=== PATIENT | male | born 1985 | race Caucasian/White ===

== ENCOUNTER 2016-05-20 09:54 | Emergency (ER) | payer OTHER ==
[~2016-05-20] VITALS: Ht 185.4 cm; Wt 99.8 kg
[~2016-05-20 09:54] MED LIST: DPKSR250 PO
[2016-05-20 09:58] VITALS: TEMP 36.6; Ht 185.4 cm; Wt 99.8 kg
[2016-05-20] MEDS ORDERED: METOCLOPRAMIDE HCL INJ 5 MG/ML 2 ML VIAL IV STA (10:50)
[2016-05-20] MEDS ORDERED: HYDROmorphone INJ 1 MG/ML SYR IV STA (10:50)
[2016-05-20] MEDS ORDERED: KETOROLAC TROMETHAMINE 30 MG/ML VIAL IV STA (10:50)
[2016-05-20] MEDS ORDERED: SODIUM CHLORIDE 0.9% 1000ML 1,000 ML IV STA (10:50)
[2016-05-20] MEDS ORDERED: KPP/750 PO (10:53)
[2016-05-20] MEDS ORDERED: LISI20TA55 PO (10:53)
[2016-05-20] MEDS ORDERED: OPTIRAY 320 IV PRN (11:00)
[2016-05-20 11:07] LABS: BASO % 0.2 %; BASO ABS # 0.03 K/uL (0-0.2); COMPLETE YES; EOS % 0.7 %; HEMATOCRIT 45.7 % (42-52); IG% 0.4 %; LYMPH % 7.6 %; LYMPH ABS # 1.45 K/uL (1.2-3.4); MEAN CELL VOLUME 84.8 fL (80-100); MEAN CORPUSCULAR HEMOGLOBIN 30.1 pg (25-34); MEAN CORPUSCULAR HGB CONC 35.4 g/dl (32-36); MEAN PLATELET VOLUME 10.6 fL (7.4-10.4); NEUT % 85.1 %; PLATELET COUNT 230 K/uL (130-400); RED BLOOD COUNT 5.39 M/uL (4.7-6.1); WHITE BLOOD COUNT 19.15 K/uL (4.8-10.8)
[2016-05-20 11:14] LABS: BUN/CREATININE RATIO 16.1 (10-20); CALCIUM 9.6 mg/dl (8.5-10.1); CREATININE 1.3 mg/dl (0.60-1.40); POTASSIUM 4.6 mmol/L (3.5-5.1)
--- NOTE | 2016-05-20 11:56 | EMERGENCY ROOM VISIT NOTE ---
History Report prepared by Nalini: Shanel Way Under the Supervision of: Dr. Ralph Snider M.D. First contact with patient: 10:45 Chief Complaint: ABDOMINAL PAIN Stated Complaint: PAIN LOWER RIGHT STOMACH Nursing Triage Summary: RLQ abd pain, started this a.m. N/V History of Present Illness The patient is a 30 year old male who presents to the Emergency Room with complaints of persistent right lower quadrant abdominal pain starting about 5 hours ago. He also reports nausea and vomiting. The patient woke up with the pain. While he was having a bowel movement, he had a sudden onset of diaphoresis and lightheadedness. He lost consciousness. The patient denies any history of any abdominal surgeries. He also denies a history of kidney stones. The patient denies fevers, chills, chest pain, shortness of breath, urinary symptoms, or any other complaints. Source of History: patient Onset: about 5 hours ago Position: abdomen (RLQ) Timing: other (persistent) Associated Symptoms: + LOC, + nausea, + vomiting, No SOB, No chest pain, No chills, No fevers, No urinary symptoms Review of Systems See HPI for pertinent positives & negatives. A total of 10 systems reviewed and were otherwise negative. Past Medical & Surgical Medical Problems: (1) HTN (hypertension) Family History Gallbladder disease Hypertension Seizures Social History Smoking Status: Current Every Day Smoker Alcohol Use: occasionally Marital Status: in relationship Housing Status: lives with family Occupation Status: employed Current/Historical Medications Scheduled Levetiracetam (Keppra), 750 MG PO BID Lisinopril/Hctz (Prinzide 20-25MG), 1 TAB PO DAILY Scheduled PRN Oxycodone/Acetaminophen 5MG/325MG (Percocet 5MG/325MG), 1-2 TAB PO Q4H PRN for Pain Allergies Coded Allergies: ALLERGY2 (Verified Allergy, Unknown, 07/29/03) NO KNOWN DRUG ALLERGIES (Unverified Allergy, Unknown, none, 05/20/16) Physical Exam Vital Signs Date Time Temp Pulse Resp B/P Pulse Ox O2 Delivery O2 Flow Rate FiO2 05/20/16 14:56 69 18 127/76 98 Room Air 05/20/16 13:54 69 18 120/64 100 Room Air 05/20/16 11:21 90 18 125/72 100 Room Air 05/20/16 09:58 36.6 68 18 110/74 97 Room Air Physical Exam GENERAL: Patient is a healthy-appearing well-nourished HEAD: Normocephalic atraumatic EYES: Ocular movements intact pupils equal and react to light OROPHARYNX mucous membranes are moist no exudates present no erythema or edema present NECK: Supple no nuchal rigidity CHEST: Good equal expansion LUNGS: Clear and equal to auscultation CARDIAC: Normal S1 and S2 ABDOMEN: Soft, tenderness in right lower quadrant, no guarding or rigidity. BACK: No CVA tenderness EXTREMITIES: No pain upon palpation normal muscle strength in all groups no clubbing cyanosis or edema NEURO: Patient is following commands is answering questions appropriately. Alert and oriented x3 Cranial Nerves 2-12 grossly intact Medical Decision & Procedures ER Provider Diagnostic Interpretation: CT results as stated below per my review and radiologist interpretation: CT SCAN OF THE ABDOMEN AND PELVIS WITH IV CONTRAST CLINICAL HISTORY: Right lower quadrant abdominal pain. COMPARISON STUDY: No priors. TECHNIQUE: Following the IV administration of 100 cc of Optiray 320, CT scan of the abdomen and pelvis is performed from the lung bases to the proximal femora. Images are reviewed in the axial, sagittal, and coronal planes. IV contrast was administered without complication. Automated dose control exposure was utilized. CT DOSE: 602.91 mGy.cm FINDINGS: Lung bases: The heart is normal in size and without pericardial effusion. The lung bases are clear noting dependent atelectasis. Liver: The contrast-enhanced liver is normal in size, contour, and attenuation. There is no intrahepatic biliary ductal dilatation. The hepatic veins and portal veins are patent. Gallbladder: Unremarkable. Spleen: Normal in size and attenuation. Pancreas: Unremarkable. Adrenal glands: Unremarkable. Kidneys: The contrast enhanced kidneys are normal in size and without hydronephrosis. The kidneys enhance symmetrically. Abdominal vasculature: The abdominal aorta is normal in course and caliber. Bowel: There is no bowel obstruction. There are several loops of proximal jejunum matted in the left upper quadrant which are mildly thick walled and show perienteric stranding. The appendix is well-visualized and normal. Peritoneum: There is no intraperitoneal free air or abdominal ascites. There is a small fat-containing umbilical hernia. Lymphadenopathy: None. Pelvic viscera: The bladder, prostate, and seminal vesicles are normal as visualized. Skeletal structures: No lytic or blastic lesions are seen. IMPRESSION: 1. Findings are consistent with a nonspecific enteritis involving loops of proximal jejunum in the left upper quadrant. 2. The appendix is well-visualized and normal. Electronically signed by: Ottoniel Hartmann M.D. 05/20/2016 2:28 PM Dictated Date/Time: 05/20/2016 2:09 PM Laboratory Results 05/20/16 10:18 Red Blood Count 5.39, Mean Corpuscular Volume 84.8, Mean Corpuscular Hemoglobin 30.1, Mean Corpuscular Hemoglobin Concent 35.4, Mean Platelet Volume 10.6, Neutrophils (%) (Auto) 85.1, Lymphocytes (%) (Auto) 7.6, Monocytes (%) (Auto) 6.0, Eosinophils (%) (Auto) 0.7, Basophils (%) (Auto) 0.2, Neutrophils # (Auto) 16.31, Lymphocytes # (Auto) 1.45, Monocytes # (Auto) 1.15, Eosinophils # (Auto) 0.13, Basophils # (Auto) 0.03 05/20/16 10:18 Test 05/20/16 10:18 05/20/16 12:50 White Blood Count 19.15 K/uL (4.8-10.8) Red Blood Count 5.39 M/uL (4.7-6.1) Hemoglobin 16.2 g/dL (14.0-18.0) Hematocrit 45.7 % (42-52) Mean Corpuscular Volume 84.8 fL (80-100) Mean Corpuscular Hemoglobin 30.1 pg (25-34) Mean Corpuscular Hemoglobin Concent 35.4 g/dl (32-36) Platelet Count 230 K/uL (130-400) Mean Platelet Volume 10.6 fL (7.4-10.4) Neutrophils (%) (Auto) 85.1 % Lymphocytes (%) (Auto) 7.6 % Monocytes (%) (Auto) 6.0 % Eosinophils (%) (Auto) 0.7 % Basophils (%) (Auto) 0.2 % Neutrophils # (Auto) 16.31 K/uL (1.4-6.5) Lymphocytes # (Auto) 1.45 K/uL (1.2-3.4) Monocytes # (Auto) 1.15 K/uL (0.11-0.59) Eosinophils # (Auto) 0.13 K/uL (0-0.5) Basophils # (Auto) 0.03 K/uL (0-0.2) RDW Standard Deviation 36.4 fL (36.4-46.3) RDW Coefficient of Variation 11.9 % (11.5-14.5) Immature Granulocyte % (Auto) 0.4 % Immature Granulocyte # (Auto) 0.08 K/uL (0.00-0.02) Anion Gap 7.0 mmol/L (3-11) Est Creatinine Clear Calc Drug Dose 101.4 ml/min Estimated GFR () 83.7 Estimated GFR (Non- 72.2 BUN/Creatinine Ratio 16.1 (10-20) Calcium Level 9.6 mg/dl (8.5-10.1) Total Bilirubin 0.6 mg/dl (0.2-1) Direct Bilirubin 0.1 mg/dl (0-0.2) Aspartate Amino Transf (AST/SGOT) 18 U/L (15-37) Alanine Aminotransferase (ALT/SGPT) 76 U/L (12-78) Alkaline Phosphatase 74 U/L (45-117) Total Protein 7.8 gm/dl (6.4-8.2) Albumin 4.3 gm/dl (3.4-5.0) Lipase 161 U/L (73-393) Urine Color YELLOW Urine Appearance CLEAR (CLEAR) Urine pH 5.0 (4.5-7.5) Urine Specific [place] 1.015 (1.000-1.030) Urine Protein NEG (NEG) Urine Glucose (UA) NEG (NEG) Urine Ketones 1+ (NEG) Urine Occult Blood NEG (NEG) Urine Nitrite NEG (NEG) Urine Bilirubin NEG (NEG) Urine Urobilinogen NEG (NEG) Urine Leukocyte Esterase NEG (NEG) Labs reviewed by ED physician. Medications Administered Medications (Trade) Dose Ordered Sig/Ravi Route Start Time Stop Time Status Last Admin Dose Admin Sodium Chloride (Nss 1000ml) 1,000 ml @ 999 mls/hr Q1H1M STAT IV 05/20/16 10:50 05/20/16 11:50 DC 05/20/16 10:50 999 MLS/HR Ketorolac Tromethamine (Toradol Inj) 30 mg NOW STAT IV 05/20/16 10:50 05/20/16 10:51 DC 05/20/16 11:17 30 MG Hydromorphone HCl (Dilaudid Inj) 1 mg NOW STAT IV 05/20/16 10:50 05/20/16 10:51 DC 05/20/16 11:18 1 MG Metoclopramide HCl (Reglan Inj) 10 mg NOW STAT IV 05/20/16 10:50 05/20/16 10:51 DC 05/20/16 11:16 10 MG ED Course 1045: Past medical records reviewed. The patient was evaluated in room A03. A complete history and physical examination was performed. 1050: Reglan Inj 10 mg IV, Dilaudid Inj 1 mg IV, Toradol Inj 30 mg IV, Sodium Chloride 1000 ml @ 999 mls/hr IV 1439: Upon reexamination the patient is resting comfortably. I discussed results and treatment plan with the patient. He verbalizes agreement and understanding. The patient is ready for discharge. Medical Decision Differential diagnosis: Etiologies such as appendicitis, diverticulitis, PUD, biliary pathology, UTI, pancreatitis, obstruction, mesenteric ischemia, aortic pathology, infections, inflammatory bowel disease, renal colic, as well as others were entertained. This is a 30-year-old male who presents emergency department complaining of right lower quadrant abdominal pain and started acutely. In addition the patient has what appears to be a vasovagal episode while sitting on the toilet. He is tender the right lower quadrant for this reason a CAT scan of the abdomen pelvis was ordered. He does not appear to have any evidence of appendicitis on CAT scan and in addition the patient on repeat abdominal examinations had no right lower quadrant abdominal tenderness. I do believe that the patient is well enough to be discharged home for follow-up with his primary care physician. Patient was in agreement with the treatment plan. Impression Primary Impression: Acute gastroenteritis Additional Impression: Vasovagal episode Scribe Attestation The scribe's documentation has been prepared under my direction and personally reviewed by me in its entirety. I confirm that the note above accurately reflects all work, treatment, procedures, and medical decision making performed by me. Departure Information Dispostion Home / Self-Care Prescriptions Oxycodone/Acetaminophen 5MG/325MG (PERCOCET 5MG/325MG) Tab 1-2 TAB PO Q4H Y for Pain, #14 TAB Prov: Ralph Snider MD 05/20/16 Referrals Ahmet Le M.D. (PCP) Lukasz Lerma M.D. Forms Call Back Authorization, HOME CARE DOCUMENTATION FORM, IMPORTANT VISIT INFORMATION Patient Instructions ED Gastroenteritis Viral, ED Near Syncope Vasovagal, My [facility] Additional Instructions You received narcotic or benzodiazepene medication while in the emergency room today. Do not drive, operate heavy machinery, or drink alcohol under the influence of this medication. Take 600 mg Ibuprofen every 6 hours Take Percocet for breakthrough pain Use probiotic yogurt for diarrhea You have been examined and treated today on an emergency basis only. This is not a substitute for, or an effort to provide, complete comprehensive medical care. It is impossible to recognize and treat all injuries or illnesses in a single emergency department visit. It is therefore important that you follow up closely with DR Melgar. Call as soon as possible for an appointment. Thank you for your time and consideration. I look forward to speaking with you again soon. Please don't hesitate to call us if you have any questions. Problem Qualifiers
[2016-05-20 13:14] LABS: URINE APPEARANCE CLEAR (CLEAR); URINE BILIRUBIN NEG (NEG); URINE COLOR YELLOW; URINE NITRITE NEG (NEG); URINE SPECIFIC GRAVITY 1.015 (1.000-1.030); UROBILINOGEN NEG (NEG)
[2016-05-20 13:44] LABS: MANUAL MICROSCOPIC REQUIRED? NO; REVIEW REQ? NO
--- NOTE | 2016-05-20 14:30 | DIAGNOSTIC IMAGING REPORT ---
CT SCAN OF THE ABDOMEN AND PELVIS WITH IV CONTRAST CLINICAL HISTORY: Right lower quadrant abdominal pain. COMPARISON STUDY: No priors. TECHNIQUE: Following the IV administration of 100 cc of Optiray 320, CT scan of the abdomen and pelvis is performed from the lung bases to the proximal femora. Images are reviewed in the axial, sagittal, and coronal planes. IV contrast was administered without complication. Automated dose control exposure was utilized. CT DOSE: 602.91 mGy.cm FINDINGS: Lung bases: The heart is normal in size and without pericardial effusion. The lung bases are clear noting dependent atelectasis. Liver: The contrast-enhanced liver is normal in size, contour, and attenuation. There is no intrahepatic biliary ductal dilatation. The hepatic veins and portal veins are patent. Gallbladder: Unremarkable. Spleen: Normal in size and attenuation. Pancreas: Unremarkable. Adrenal glands: Unremarkable. Kidneys: The contrast enhanced kidneys are normal in size and without hydronephrosis. The kidneys enhance symmetrically. Abdominal vasculature: The abdominal aorta is normal in course and caliber. Bowel: There is no bowel obstruction. There are several loops of proximal jejunum matted in the left upper quadrant which are mildly thick walled and show perienteric stranding. The appendix is well-visualized and normal. Peritoneum: There is no intraperitoneal free air or abdominal ascites. There is a small fat-containing umbilical hernia. Lymphadenopathy: None. Pelvic viscera: The bladder, prostate, and seminal vesicles are normal as visualized. Skeletal structures: No lytic or blastic lesions are seen. IMPRESSION: 1. Findings are consistent with a nonspecific enteritis involving loops of proximal jejunum in the left upper quadrant. 2. The appendix is well-visualized and normal. Electronically signed by: Ottoniel Hartmann M.D. 05/20/2016 2:28 PM Dictated Date/Time: 05/20/2016 2:09 PM
[2016-05-20] MEDS ORDERED: OXYC-57 PO (14:36)
[2016-05-20 14:56] VITALS: BP 127/76; PULSE 69; O2SAT 98
[2016-10-26] MEDS ORDERED: KPP/1000 PO (17:42)
[2016-10-26] MEDS ORDERED: OXYC-57 PO (18:00)
== END 2016-05-20 14:56 | disposition home or self-care (01) ==
LOC: C.EDB 09:55 → C.EDA 14:56
DX: K52.9 Noninfective gastroenteritis and colitis, unspecified (principal); R55 Syncope and collapse; F17.200 Nicotine dependence, unspecified, uncomplicated; Z82.49 Family history of ischemic heart disease and other diseases of the circulatory system; Z82.0 Family history of epilepsy and other diseases of the nervous system

== ENCOUNTER 2016-10-24 22:46 | Observation (INO) | payer BC, OTHER ==
[~2016-10-24] VITALS: Ht 182.9 cm; Wt 106.0 kg
[~2016-10-24 22:46] MED LIST changes: -DPKSR250 PO; +KPP/750 PO; +LISI20TA55 PO; +OXYC-57 PO
[2016-10-24] MEDS ORDERED: SODIUM CHLORIDE 0.9% 1000ML 1,000 ML IV SCH (22:47)
[2016-10-24 22:50] VITALS: Ht 182.9 cm; Wt 106.0 kg
[2016-10-24] MEDS ORDERED: LEVETIRACETAM IV 500 MG in DEXTROSE 5% 100ML 100 ML IV STA (22:51)
[2016-10-24] MEDS ORDERED: MAGNESIUM SULFATE 1GM / D5W 1 GM BAG IV STA (22:52)
[2016-10-24] MEDS ORDERED: SODIUM CHLORIDE 0.9% 1000ML 1,000 ML IV STA (22:52)
[2016-10-24] MEDS ORDERED: KETOROLAC TROMETHAMINE 30 MG/ML VIAL IV STA (22:52)
[2016-10-24 23:01] LABS: BASO % 0.4 %; BASO ABS # 0.03 K/uL (0-0.2); COMPLETE YES; EOS % 3.8 %; HEMATOCRIT 42.6 % (42-52); IG% 0.5 %; LYMPH % 30.7 %; LYMPH ABS # 2.56 K/uL (1.2-3.4); MEAN CELL VOLUME 89.7 fL (80-100); MEAN CORPUSCULAR HEMOGLOBIN 30.3 pg (25-34); MEAN CORPUSCULAR HGB CONC 33.8 g/dl (32-36); MONO % 7.9 %; NEUT % 56.7 %; PLATELET COUNT 227 K/uL (130-400); RED BLOOD COUNT 4.75 M/uL (4.7-6.1); WHITE BLOOD COUNT 8.35 K/uL (4.8-10.8)
--- NOTE | 2016-10-24 23:01 | EMERGENCY ROOM VISIT NOTE ---
History Report prepared by Nalini: Jose De Jesus Escobar Under the Supervision of: Dr. Ralph Snider M.D. First contact with patient: 22:39 Chief Complaint: STROKE SYMPTOMS Stated Complaint: STROKE ALERT History of Present Illness The patient is a 31 year old male who presents to the Emergency Room with complaints of resolved left-sided weakness that occurred 1 hour ago. The patient has a past medical history of migraines and seizures. He is on Keppra and has been up to date on his doses. At this time, he was in bed with his when she noticed that the left side of his face was drooping and he was not responding. After a couple of minutes he began to respond but he was having left sided weakness as well. They called EMS. On arrival, the patient's symptoms have resolved, however he now has a posterior headache. 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 Source of History: patient Onset: 1 hour ago Position: other (Left side) Symptom Intensity: minimal Quality: other (weakness) Timing: resolved Associated Symptoms: + headache Note: His weakness has now resolved. Review of Systems See HPI for pertinent positives & negatives. A total of 10 systems reviewed and were otherwise negative. Past Medical & Surgical Medical Problems: (1) HTN (hypertension) (2) Seizure Family History Gallbladder disease Hypertension Seizures Social History Smoking Status: Current Every Day Smoker Smokeless Tobacco Use: No Alcohol Use: occasionally Drug Use: none Marital Status: in relationship Housing Status: lives with family Occupation Status: employed Current/Historical Medications Scheduled Levetiracetam (Keppra), 750 MG PO BID Lisinopril/Hctz (Prinzide 20-25MG), 1 TAB PO DAILY Allergies Coded Allergies: NO KNOWN DRUG ALLERGIES (Unverified Allergy, Unknown, none, 10/24/16) Physical Exam Vital Signs Date Time Temp Pulse Resp B/P (MAP) Pulse Ox O2 Delivery O2 Flow Rate FiO2 10/25/16 01:39 85 18 153/77 98 Room Air 10/25/16 01:21 84 18 143/80 97 Room Air 10/24/16 23:37 91 20 127/78 99 Room Air 10/24/16 22:59 91 Room Air 10/24/16 22:57 103 10/24/16 22:50 36.4 103 20 147/105 98 Room Air Physical Exam GENERAL: Patient is a healthy-appearing well-nourished male HEAD: Normocephalic atraumatic EYES: Ocular movements intact pupils equal and react to light OROPHARYNX mucous membranes are moist no exudates present no erythema or edema present NECK: Supple no nuchal rigidity CHEST: Good equal expansion LUNGS: Clear and equal to auscultation CARDIAC: Normal S1 and S2 ABDOMEN: Soft nontender no guarding BACK: No CVA tenderness EXTREMITIES: No pain upon palpation normal muscle strength in all groups no clubbing cyanosis or edema NEURO: Patient is following commands and answering questions appropriately. Alert and oriented x3 Cranial Nerves 2-12 grossly intact Medical Decision & Procedures ER Provider Diagnostic Interpretation: Radiology results as stated below per my review and radiologist interpretation: CT OF THE HEAD WITHOUT CONTRAST CLINICAL HISTORY: Stroke alert. COMPARISON STUDY: Head CT March 14, 2010. CT DOSE: 537.48 mGy.cm TECHNIQUE: Helical axial images of the head were obtained without IV contrast. Automated exposure control was utilized for the study. A dose lowering technique was utilized adhering to the principles of ALARA. FINDINGS: No acute intracranial hemorrhage, midline shift or mass effect is present. Ventricular system is normal. Basilar cisterns are patent. There are no extra-axial collections. Gonzales-white differentiation is maintained. There are no findings to suggest acute dural sinus thrombosis or acute territorial infarct. There are no significant calvarial abnormalities. There is minimal mucosal thickening of the ethmoid sinuses. IMPRESSION: No acute intracranial findings. Electronically signed by: Leonel Shah M.D. 10/24/2016 10:59 PM Dictated Date/Time: 10/24/2016 10:55 PM CHEST X-RAY 1 VIEW: No evidence of pneumonia, congestion, or pneumothorax. Per mo Laboratory Results 10/24/16 22:38 Red Blood Count 4.75, Mean Corpuscular Volume 89.7, Mean Corpuscular Hemoglobin 30.3, Mean Corpuscular Hemoglobin Concent 33.8, Mean Platelet Volume 10.0, Neutrophils (%) (Auto) 56.7, Lymphocytes (%) (Auto) 30.7, Monocytes (%) (Auto) 7.9, Eosinophils (%) (Auto) 3.8, Basophils (%) (Auto) 0.4, Neutrophils # (Auto) 4.74, Lymphocytes # (Auto) 2.56, Monocytes # (Auto) 0.66, Eosinophils # (Auto) 0.32, Basophils # (Auto) 0.03 10/24/16 22:38 Test 10/24/16 22:38 10/24/16 22:56 10/25/16 00:00 White Blood Count 8.35 K/uL (4.8-10.8) Red Blood Count 4.75 M/uL (4.7-6.1) Hemoglobin 14.4 g/dL (14.0-18.0) Hematocrit 42.6 % (42-52) Mean Corpuscular Volume 89.7 fL (80-100) Mean Corpuscular Hemoglobin 30.3 pg (25-34) Mean Corpuscular Hemoglobin Concent 33.8 g/dl (32-36) Platelet Count 227 K/uL (130-400) Mean Platelet Volume 10.0 fL (7.4-10.4) Neutrophils (%) (Auto) 56.7 % Lymphocytes (%) (Auto) 30.7 % Monocytes (%) (Auto) 7.9 % Eosinophils (%) (Auto) 3.8 % Basophils (%) (Auto) 0.4 % Neutrophils # (Auto) 4.74 K/uL (1.4-6.5) Lymphocytes # (Auto) 2.56 K/uL (1.2-3.4) Monocytes # (Auto) 0.66 K/uL (0.11-0.59) Eosinophils # (Auto) 0.32 K/uL (0-0.5) Basophils # (Auto) 0.03 K/uL (0-0.2) RDW Standard Deviation 41.3 fL (36.4-46.3) RDW Coefficient of Variation 12.8 % (11.5-14.5) Immature Granulocyte % (Auto) 0.5 % Immature Granulocyte # (Auto) 0.04 K/uL (0.00-0.02) Prothrombin Time 9.9 SECONDS (9.0-12.0) Prothromb Time International Ratio 0.9 (0.9-1.1) Activated Partial Thromboplast Time 32.6 SECONDS (21.0-31.0) Partial Thromboplastin Ratio 1.3 Anion Gap 10.0 mmol/L (3-11) Est Creatinine Clear Calc Drug Dose 101.7 ml/min Estimated GFR () 83.1 Estimated GFR (Non- 71.7 BUN/Creatinine Ratio 9.9 (10-20) Calcium Level 8.8 mg/dl (8.5-10.1) Magnesium Level 1.9 mg/dl (1.8-2.4) Total Bilirubin 0.2 mg/dl (0.2-1) Direct Bilirubin < 0.1 mg/dl (0-0.2) Aspartate Amino Transf (AST/SGOT) 33 U/L (15-37) Alanine Aminotransferase (ALT/SGPT) 47 U/L (12-78) Alkaline Phosphatase 62 U/L (45-117) Total Creatine Kinase 124 U/L (39-308) Creatine Kinase MB 0.8 ng/ml (0.5-3.6) Creatine Kinase MB Ratio 0.6 (0-3.0) Troponin I < 0.015 ng/ml (0-0.045) Total Protein 7.2 gm/dl (6.4-8.2) Albumin 3.9 gm/dl (3.4-5.0) Thyroid Stimulating Hormone (TSH) 1.040 uIu/ml (0.300-4.500) Bedside Prothrombin Time INR 1.0 (0.9-1.1) Bedside Glucose 90 mg/dl (70-99) Urine Color YELLOW Urine Appearance CLEAR (CLEAR) Urine pH 6.0 (4.5-7.5) Urine Specific Naylor 1.010 (1.000-1.030) Urine Protein NEG (NEG) Urine Glucose (UA) NEG (NEG) Urine Ketones NEG (NEG) Urine Occult Blood NEG (NEG) Urine Nitrite NEG (NEG) Urine Bilirubin NEG (NEG) Urine Urobilinogen NEG (NEG) Urine Leukocyte Esterase NEG (NEG) Urine Opiates Screen POS (NEG) Urine Methadone, Qualitative NEG (NEG) Urine Barbiturates NEG (NEG) Urine Phencyclidine (PCP) Level NEG (NEG) Ur Amphetamine/Methamphetamine NEG (NEG) MDMA (Ecstasy) Screen NEG (NEG) Urine Benzodiazepines Screen NEG (NEG) Urine Cocaine Metabolite NEG (NEG) Urine Marijuana (THC) NEG (NEG) Labs reviewed by ED physician. Medications Administered Medications (Trade) Dose Ordered Sig/Ravi Route Start Time Stop Time Status Last Admin Dose Admin Sodium Chloride 1,000 ml @ 50 mls/hr Q20H IV 8/28/17 22:47 11/23/16 22:46 10/24/16 23:23 50 MLS/HR Ketorolac Tromethamine (Toradol Inj) 30 mg NOW STAT IV 10/24/16 22:52 10/24/16 22:55 DC 10/24/16 23:17 30 MG Sodium Chloride 1,000 ml @ 999 mls/hr Q1H1M STAT IV 10/24/16 22:52 10/24/16 23:52 DC 10/24/16 23:23 999 MLS/HR Magnesium Sulfate (Magnesium Sulfate) 1 gm NOW STAT IV 10/24/16 22:52 10/24/16 22:55 DC 10/24/16 22:52 1 GM Lorazepam (Ativan Inj) 2 mg NOW STAT IV 10/24/16 23:18 10/24/16 23:19 DC 10/24/16 23:20 2 MG Levetiracetam 1000 mg/Dextrose 110 ml @ 440 mls/hr ONE ONCE IV 10/24/16 23:30 10/24/16 23:44 DC 10/24/16 23:27 440 MLS/HR Potassium Chloride (Klor-Con Pwd) 40 meq NOW STAT PO 10/24/16 23:26 10/24/16 23:27 DC 10/25/16 00:18 40 MEQ Benztropine Mesylate (Cogentin Inj) 2 mg NOW STAT IV 10/24/16 23:56 10/24/16 23:57 DC 10/24/16 23:56 2 MG Hydromorphone HCl (Dilaudid Inj) 1 mg NOW STAT IV 10/25/16 00:01 10/25/16 00:03 DC 10/25/16 00:20 1 MG Thiamine HCl (Vitamin B-1 Inj) 100 mg NOW STAT IV 10/25/16 00:02 10/25/16 00:15 DC 10/25/16 00:23 100 MG Ketorolac Tromethamine (Toradol Inj) 30 mg NOW STAT IV 10/25/16 00:53 10/25/16 01:13 DC 10/25/16 01:36 30 MG ECG Indication: weakness Rate (beats per minute): 98 Rhythm: normal sinus Findings: no acute ischemic change, no ectopy ED Course 2238: Past medical records reviewed. The patient was evaluated in room B1. A complete history and physical examination was performed. 2247: Ordered Sodium Chloride 1000 ml @ 50 mls/hr IV 2251: Ordered Levetiracetam 500 mg/Dextrose 105 ml @ 420 mls/hr IV 2252: Ordered Magnesium Sulfate 1 mg IV, Sodium Chloride 1000 ml @ 999 mls/hr IV , Toradol Inj 30 mg IV 2316: Ordered Ativan Inj 2 mg .ROUTE 2318: Ordered Ativan Inj 2 mg IV 2321: Ordered Potassium Chloride 40 meq PO 2330: Ordered Levetiracetam 1000 mg/Dextrose 110 ml @ 440 mls/hr IV 2356: Ordered Cogentin 2 mg IV 2354: Upon reexamination the patient is resting. I discussed results and treatment plan with the patient. He verbalizes agreement and understanding. I spoke with Dr. Moss from the [facility]. The patient will be evaluated for further management. Medical Decision Differential diagnosis: Etiologies such as metabolic, infection, hypo/hyperglycemia, electrolyte abnormalities, cardiac sources, intracerebral event, toxicologic, neurologic, as well as others were entertained. This is a 31-year-old male who presents emergency department complaining of seizure-like activity. 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 He does not appear to be post ictal after these episodes. Upon arrival to the emergency department the patient is belligerent and is refusing an alcohol lab. He is angry that he is here. I recommended that the patient receive IV Keppra as he has been drinking tonight. The patient admits to drinking 3 or 4 beers but does not believe that this has anything to do with his current state. The patient initially refused to Keppra as well as the Ativan and did not want anything done however he had another episode in the emergency department. At that time he did receive Ativan a Keppra. I was called to the room approximate 30 minutes later to witness the patient again have another episode and at this point I strongly suspect that the patient is actually having dystonic reactions. For this reason he was given Cogentin which seemed to stop the episodes. Based on the fact that the patient had multiple episodes I did discuss the case with the hospitalist who agreed to admit the patient. Medication Reconcilliation Current Medication List: was personally reviewed by me Blood Pressure Screening Patient's blood pressure: Elevated blood pressure Blood pressure disposition: Elevated BP felt to be situational Consults Time Called: [id number] Consulting Physician: Dr. Isa Perez Hospitalist Returned Call: [phone] I discussed the patient's case with Dr. Moss, he has agreed to evaluate the patient for further management and care. Impression Primary Impression: Dystonic drug reaction Critical Care I have personally spent greater than 30 minutes of critical care time in the direct management of this patient. This includes bedside care, interpretation of diagnostic studies, and testing, discussion with consultants, patient, and family members, and other required patient management activities. This 30 minutes is in excess of all separately billable procedures. Scribe Attestation The scribe's documentation has been prepared under my direction and personally reviewed by me in its entirety. I confirm that the note above accurately reflects all work, treatment, procedures, and medical decision making performed by me. Departure Information Dispostion Being Evaluated By Hospitalist Referrals Lukasz Lerma M.D. (PCP) Patient Instructions My [facility] Stroke History Time Last Known Well 1 hour ago Stroke t-PA Criteria Reviewed Does NOT meet criteria for t-PA Reason t-PA Not Given Treatment not indicated
[2016-10-24 23:13] LABS: INR 0.9 (0.9-1.1); PARTIAL THROMBOPLASTIN RATIO 1.3; PROTHROMBIN TIME (PATIENT) 9.9 SECONDS (9.0-12.0)
[2016-10-24] MEDS ORDERED: LORAZEPAM 2 MG/ML 1 ML VIAL ONE (23:16)
[2016-10-24] MEDS ORDERED: LORAZEPAM 2 MG/ML 1 ML VIAL IV STA (23:18)
[2016-10-24 23:24] LABS: BLOOD UREA NITROGEN 13 mg/dl (7-18); BUN/CREATININE RATIO 9.9 (10-20); CALCIUM 8.8 mg/dl (8.5-10.1); CARBON DIOXIDE 27 mmol/L (21-32); CHLORIDE 103 mmol/L (98-107); GLUCOSE 88 mg/dl (70-99); POTASSIUM 3.4 mmol/L (3.5-5.1); SODIUM 140 mmol/L (136-145)
[2016-10-24] MEDS ORDERED: POTASSIUM CHLORIDE PWD 20 MEQ PACK PO STA (23:26)
[2016-10-24 23:28] LABS: CKMB/CK RATIO 0.6 (0-3.0)
[2016-10-24] MEDS ORDERED: LEVETIRACETAM IV 1,000 MG in DEXTROSE 5% 100ML 100 ML IV ONE (23:30)
[2016-10-24] MEDS ORDERED: BENZTROPINE MESYLATE 1 MG/ML 2 ML AMP IV STA (23:56)
[2016-10-25] MEDS ORDERED: HYDROmorphone INJ 1 MG/ML SYR IV STA (00:01)
[2016-10-25] MEDS ORDERED: POTASSIUM CHLORIDE 10 MEQ TABCR PO STA (00:02)
[2016-10-25] MEDS ORDERED: THIAMINE HCL 100 MG/ML 2 ML VIAL IV STA (00:02)
[2016-10-25 00:27] LABS: ALKALINE PHOSPHATASE 62 U/L (45-117); ALT/SGPT 47 U/L (12-78); AST/SGOT 33 U/L (15-37); MAGNESIUM 1.9 mg/dl (1.8-2.4)
[2016-10-25] MEDS ORDERED: KETOROLAC TROMETHAMINE 30 MG/ML VIAL IV STA (00:53)
[2016-10-25] MEDS ORDERED: LORAZEPAM INJ 1 MG in SYRINGE 0.5 ML IV PRN (01:00)
[2016-10-25] MEDS ORDERED: ACETAMINOPHEN 325 MG TAB PO PRN (01:00)
[2016-10-25] MEDS ORDERED: LORAZEPAM 2 MG/ML 1 ML VIAL IV PRN (01:00)
[2016-10-25] MEDS ORDERED: KETOROLAC TROMETHAMINE 30 MG/ML VIAL IV PRN (01:00)
[2016-10-25] MEDS ORDERED: LEVETIRACETAM IV 500 MG in DEXTROSE 5% 100ML 100 ML IV ONE (01:00)
[2016-10-25] MEDS ORDERED: GABAPENTIN 600 MG TAB PO SCH (01:00)
[2016-10-25] MEDS ORDERED: IBUPROFEN 200 MG TAB PO PRN (01:00)
[2016-10-25] MEDS ORDERED: ONDANSETRON INJ 2 MG/ML 2 ML VIAL IV PRN (01:00)
[2016-10-25 01:05] LABS: URINE APPEARANCE CLEAR (CLEAR); URINE BILIRUBIN NEG (NEG); URINE COLOR YELLOW; URINE NITRITE NEG (NEG); UROBILINOGEN NEG (NEG); ZZUR CULT IF INDIC CLEAN CATCH NO
[2016-10-25 01:11] LABS: MANUAL MICROSCOPIC REQUIRED? NO; REVIEW REQ? NO
[2016-10-25 01:25] LABS: BENZODIAZEPINE, URINE NEG (NEG); COCAINE,URINE NEG (NEG); PHENCYCLIDINE, URINE NEG (NEG)
[2016-10-25] MEDS ORDERED: GADAVIST IV PRN (02:45)
[2016-10-25 03:00] VITALS: BP 142/85; PULSE 76; TEMP 36.8
[2016-10-25] MEDS ORDERED: IV FLUIDS COMPLETED PRN (03:00)
[2016-10-25] MEDS ORDERED: LIDODERM (LIDOCAINE) PATCH 5% TD ONE (03:15)
[2016-10-25] MEDS ORDERED: LACTATED RINGER'S 1000ML 1,000 ML IV ONE (03:15)
[2016-10-25] MEDS ORDERED: GABAPENTIN 1200MG LOADING DOSE PO ONE (03:15)
[2016-10-25] MEDS ORDERED: NICOTINE 7 MG/24 HR TDSY TD ONE (03:15)
--- NOTE | 2016-10-25 03:46 | HISTORY & PHYSICAL EXAMINATION ---
DATE OF ADMISSION: 10/24/2016 PRIMARY CARE PHYSICIAN: Dr. Muñoz CHIEF COMPLAINT: L sided weakness HISTORY OF PRESENT ILLNESS: History obtained from patient, mirzae, and records. Medical history significant for seizure disorder, ongoing tobacco and alcohol abuse, hypertension, chronic back pain. Over the weekend, px got sick after eating a hamburger. Nausea/vomiting symptoms. Some abdominal pain. No diarrhea. Symptoms resolved. Last night, patient was getting ready for bed when mirza noted possible drooping on left side of his face. Patient "curled up" as per denny's account. Confusion noted. No tongue biting, no incontinence. Patient can just remember some details of events. At the Emergency Room, jerking of the arms noted especially more on the left. Patient confused through episode. Patient also noted achy left-sided headache symptoms. Different from usual "grand mal" seizure attacks from many years back. Patient compliant with home medications. Admits to nightly alcohol intake. Does not think it's a problem though. Patient claims alcohol makes upper extremity jerks stop. No chest pain, no shortness of breath. Currently comfortable. MEDICAL HISTORY: As above. SURGERIES: Skin graft surgery on the left face neck for dog bite wound. HOME MEDICATIONS: Include Keppra, lisinopril, HCTZ. ALLERGIES: No known drug allergies. FAMILY HISTORY: MS. PERSONAL SOCIAL HISTORY: A few cigarettes a day. Daily alcohol intake, 4-6 bottles. History of illicit drug use per records. REVIEW OF SYSTEMS: As per HPI, all other ROS negative. PHYSICAL EXAMINATION: VITAL SIGNS: Blood pressure was noted to be 127/78, pulse rate 89, RR 18 temperature 36.4, sats 99 on room air. GENERAL: Noted to be slightly anxious, obese, no respiratory distress. SKIN: Normal color. HEENT: [place] palpebral conjunctivae. Dry mucosa. NECK: Short neck. LUNGS: Decreased breath sounds. HEART: Regular rate and rhythm. ABDOMEN: Soft. EXTREMITIES: No edema, no tenderness. NEUROLOGIC: No gross focality. LABS: Hemoglobin was noted to be 14.4, hematocrit 42.6, white cells 8.25, platelets 227. Sodium 140, potassium 3.4, chloride 103, CO2 of 27, BUN 13, crea 1.3, glucose was noted to be 90. CT of the head, no acute pathology. ASSESSMENT: 1. Seizures, focal with some impairment of consciousness different from usual grand mal seizures as per patient. 2. Hypokalemia secondary to diuretic therapy, recent GI illness 3. Hypertension, stable. 4. Ongoing tobacco/ETOH abuse. 5. Chronic back pain, symptoms at baseline PCP currently adequately managing patient's pain as per patient account. PLAN: Observation GMF. Increase maintenance Keppra dose from 750 mg b.i.d. to 1 gram b.i.d. for now. Seizure precautions. Ativan when necessary EEG, MRI of the brain. Neurology consult. (Patient known to Dr. Harrison). RE new seizures Replace potassium. Hold home diuretic meds for now. DT precautions. Nicotine patch. DVT prophylaxis with Lovenox subQ. Full code. MTDD
[2016-10-25] MEDS ORDERED: GABAPENTIN 600MG Q12H DOSE PO SCH (06:00)
[2016-10-25 06:22] LABS: BASO % 0.4 %; BASO ABS # 0.03 K/uL (0-0.2); COMPLETE YES; EOS % 6.5 %; HEMATOCRIT 41.3 % (42-52); IG% 0.7 %; LYMPH % 31.3 %; LYMPH ABS # 2.21 K/uL (1.2-3.4); MEAN CORPUSCULAR HEMOGLOBIN 30.1 pg (25-34); MEAN CORPUSCULAR HGB CONC 33.4 g/dl (32-36); MEAN PLATELET VOLUME 10.2 fL (7.4-10.4); MONO % 8.9 %; NEUT % 52.2 %; PLATELET COUNT 218 K/uL (130-400); RED BLOOD COUNT 4.59 M/uL (4.7-6.1); WHITE BLOOD COUNT 7.06 K/uL (4.8-10.8)
--- NOTE | 2016-10-25 06:42 | DIAGNOSTIC IMAGING REPORT ---
CHEST ONE VIEW PORTABLE HISTORY: 31 years-old Male acute strokelike symptoms COMPARISON: None available TECHNIQUE: Portable upright AP view of the chest FINDINGS: Cardiac silhouette is upper limits of normal, likely accentuated by technique. Patient is slightly rotated to the right. There is no pneumothorax, pleural effusion or focal airspace consolidation. There is minimal right hemidiaphragmatic elevation. The lungs are mildly hypoinflated. The bones are grossly intact. IMPRESSION: Mild hypoinflation without acute cardiopulmonary process. The above report was generated using voice recognition software. It may contain grammatical, syntax or spelling errors. Electronically signed by: Jean Cedeno M.D. 10/25/2016 6:40 AM Dictated Date/Time: 10/25/2016 6:39 AM
[2016-10-25 06:52] LABS: BUN/CREATININE RATIO 13.5 (10-20); CALCIUM 9.1 mg/dl (8.5-10.1); CREATININE 1.2 mg/dl (0.60-1.40); POTASSIUM 4.3 mmol/L (3.5-5.1)
--- NOTE | 2016-10-25 07:47 | DIAGNOSTIC IMAGING REPORT ---
Brain MRI WITH AND WITHOUT CONTRAST HISTORY: L arm jerks TECHNIQUE: Multiplanar multisequence MRI of the brain was performed both before and after the intravenous administration of contrast. COMPARISON STUDY: None. FINDINGS: There are no areas of restricted diffusion to suggest acute infarction. The midline structures are intact. Mild mucosal thickening within the left maxillary sinus and ethmoid air cells. The mastoid air cells are clear. The ventricles and sulci are within normal limits for age. There is no mass, hematoma, midline shift. The major vascular flow-voids at the skull base are well maintained. Postcontrast sequences show no areas of abnormal enhancement. Punctate focus of questionable enhancement within the left high convexity on image 17 of series 12 likely represents a vessel. There is also a single punctate focus of T2 hyperintensity within the subcortical white matter of the right frontal lobe at the high convexity best seen on image 11 of the coronal FLAIR sequences. This is of doubtful clinical significance. The temporal lobes are symmetric. No evidence for a matter heterotopia. IMPRESSION: No acute intracranial abnormality. There is a single punctate focus of T2 hyperintensity within the subcortical white matter of the right frontal lobe. This is of doubtful clinical significance. Electronically signed by: Tano Gallegos M.D. 10/25/2016 7:46 AM Dictated Date/Time: 10/25/2016 7:38 AM
[2016-10-25] MEDS ORDERED: LEVETIRACETAM 250 MG TAB PO SCH (08:00)
[2016-10-25 08:01] VITALS: BP 125/79; PULSE 65; TEMP 36.6; O2SAT 99
[2016-10-25] MEDS: LISINOPRIL 20 MG TAB PO SCH (08:49)
[2016-10-25] MEDS: GABAPENTIN 600MG Q6H DOSE PO SCH ×2 (08:49→16:57)
[2016-10-25] MEDS: MULTIVITAMIN TAB PO SCH (08:50)
[2016-10-25] MEDS: ENOXAPARIN 40 MG/0.4 ML SYR SQ SCH (08:51)
--- NOTE | 2016-10-25 14:17 | ELECTROENCEPHALOGRAPH REPORT ---
REQUESTING PHYSICIAN: Dr. Moss. CLINICAL DIAGNOSIS: Seizures. EEG DIAGNOSIS: Mildly abnormal EEG with bifrontal slow wave activity slightly more prominent on the right. DESCRIPTION OF TRACING: This EEG was done as a bedside recording on a patient who is described as dull and simultaneous video analysis of patient movement and behavior reveals that he appears to be in a drowsy state most of the time during the recording and there are very few spontaneous motor movements. Photic stimulation was performed. Hyperventilation was not and drowsiness is recorded episodically. Under these conditions, there is evidence for on occasion a normal background rhythm in the alpha range of up to 9 Hz of maximum frequency and of up to 30 microvolts of maximum amplitude. This is maximum posterior head regions bilaterally symmetrical. Throughout most of the recording, the background rhythm was in the upper theta range at 7-8 Hz and again is slightly more prominent in the posterior head regions. Polymorphic slower activity of modest amplitude in the theta range and occasionally in the delta range is seen over the frontal regions bilaterally with a slightly more prominence on the right in terms of amplitude. Beta activity is difficult to ascertain. Photic stimulation provoked some minimal driving response without any photomyogenic or photoparoxysmal components. Drowsiness was recorded episodically and in fact most of the recording may well have been performed in a drowsy state. At no time during the tracing is there evidence for potentially epileptogenic activity in the form of polyspike or spike wave bursts, focal sharp waves or focal spikes. INTERPRETATION: This electroencephalogram is mildly abnormal what bifrontal slow wave activity slightly more prominent on the right and with a paucity of normal background alpha rhythm throughout most of the recording. Clinically, the patient appeared to be drowsy and much of the above findings might reflect a state of transition between wakefulness and drowsiness, but the bifrontal slowing and the slight accentuation on the right is mildly worrisome for underlying structural disease and clinical correlation is required. There is no evidence, however, for unequivocal potentially epileptogenic activity at the present time, although its absence does not exclude the diagnosis of seizures. MTDD
[2016-10-25] MEDS: OXYCODONE/ACETAMINOPHEN 5-325 TAB PO PRN ×2 (14:29→20:45)
[2016-10-25 16:00] VITALS: O2SAT 99
[2016-10-25 16:21] VITALS: BP 142/80; PULSE 74; TEMP 36.6; O2SAT 98
--- NOTE | 2016-10-25 16:29 | Progress Note ---
Medicine Progress Note Date & Time of Visit: Oct 25, 2016 at 15:51. Subjective Pt was seen and examined Lying in bed with no distress with his partner at bedside He said that he felt funny this morning Pt said that he fees fine now denies any chest pain, palpitation, dizziness and sob Objective Last 8 Hrs Date Time Temp Pulse Resp B/P (MAP) Pulse Ox O2 Delivery O2 Flow Rate FiO2 10/25/16 08:15 Room Air 10/25/16 08:01 36.6 65 18 125/79 (94) 99 Room Air Physical Exam: General- No acute distress Head- atraumatic Eyes- PERRL, EOMI ENT- oropharynx clear Neck- supple, no JVD Lungs- clear to auscultation Heart- regular rhythm; no murmur Abdomen- normal bowel sounds, soft Extremities- no pretibial edema, no calf tenderness Neuro- alert, oriented x 3; PERRL, EOMI; no facial palsy; no dysarthria Skin- warm & dry Laboratory Results: Last 24 Hours Test 10/24/16 22:38 10/24/16 22:56 10/25/16 00:00 10/25/16 06:04 White Blood Count 8.35 K/uL 7.06 K/uL Red Blood Count 4.75 M/uL 4.59 M/uL Hemoglobin 14.4 g/dL 13.8 g/dL Hematocrit 42.6 % 41.3 % Mean Corpuscular Volume 89.7 fL 90.0 fL Mean Corpuscular Hemoglobin 30.3 pg 30.1 pg Mean Corpuscular Hemoglobin Concent 33.8 g/dl 33.4 g/dl Platelet Count 227 K/uL 218 K/uL Mean Platelet Volume 10.0 fL 10.2 fL Neutrophils (%) (Auto) 56.7 % 52.2 % Lymphocytes (%) (Auto) 30.7 % 31.3 % Monocytes (%) (Auto) 7.9 % 8.9 % Eosinophils (%) (Auto) 3.8 % 6.5 % Basophils (%) (Auto) 0.4 % 0.4 % Neutrophils # (Auto) 4.74 K/uL 3.68 K/uL Lymphocytes # (Auto) 2.56 K/uL 2.21 K/uL Monocytes # (Auto) 0.66 K/uL 0.63 K/uL Eosinophils # (Auto) 0.32 K/uL 0.46 K/uL Basophils # (Auto) 0.03 K/uL 0.03 K/uL RDW Standard Deviation 41.3 fL 42.2 fL RDW Coefficient of Variation 12.8 % 13.0 % Immature Granulocyte % (Auto) 0.5 % 0.7 % Immature Granulocyte # (Auto) 0.04 K/uL 0.05 K/uL Prothrombin Time 9.9 SECONDS Prothromb Time International Ratio 0.9 Activated Partial Thromboplast Time 32.6 SECONDS Partial Thromboplastin Ratio 1.3 Sodium Level 140 mmol/L 141 mmol/L Potassium Level 3.4 mmol/L 4.3 mmol/L Chloride Level 103 mmol/L 108 mmol/L Carbon Dioxide Level 27 mmol/L 28 mmol/L Anion Gap 10.0 mmol/L 5.0 mmol/L Blood Urea Nitrogen 13 mg/dl 16 mg/dl Creatinine 1.30 mg/dl 1.20 mg/dl Est Creatinine Clear Calc Drug Dose 101.7 ml/min 110.2 ml/min Estimated GFR () 83.1 91.5 Estimated GFR (Non- 71.7 79.0 BUN/Creatinine Ratio 9.9 13.5 Random Glucose 88 mg/dl 114 mg/dl Calcium Level 8.8 mg/dl 9.1 mg/dl Magnesium Level 1.9 mg/dl Total Bilirubin 0.2 mg/dl Direct Bilirubin < 0.1 mg/dl Aspartate Amino Transf (AST/SGOT) 33 U/L Alanine Aminotransferase (ALT/SGPT) 47 U/L Alkaline Phosphatase 62 U/L Total Creatine Kinase 124 U/L Creatine Kinase MB 0.8 ng/ml Creatine Kinase MB Ratio 0.6 Troponin I < 0.015 ng/ml Total Protein 7.2 gm/dl Albumin 3.9 gm/dl Thyroid Stimulating Hormone (TSH) 1.040 uIu/ml Bedside Prothrombin Time INR 1.0 Bedside Glucose 90 mg/dl Urine Color YELLOW Urine Appearance CLEAR Urine pH 6.0 Urine Specific [place] 1.010 Urine Protein NEG Urine Glucose (UA) NEG Urine Ketones NEG Urine Occult Blood NEG Urine Nitrite NEG Urine Bilirubin NEG Urine Urobilinogen NEG Urine Leukocyte Esterase NEG Urine Opiates Screen POS Urine Methadone, Qualitative NEG Urine Barbiturates NEG Urine Phencyclidine (PCP) Level NEG Ur Amphetamine/Methamphetamine NEG MDMA (Ecstasy) Screen NEG Urine Benzodiazepines Screen NEG Urine Cocaine Metabolite NEG Urine Marijuana (THC) NEG Ethyl Alcohol mg/dL < 3.0 mg/dl Assessment & Plan Seizures Unclear presentation. Has been complaint with seizure med. Keppra increased to 750mg BID [place] showed mildly abnormal bifrontal slow wave activity. No evidence of epileptogenic activity. MRI done showed no acute intracranial abnormality Neuro on board- appreciate input Seizure precaution Hypokalemia Monitor BMP Resolved Hypertension Continue Lisinopril Stable Tobacco abuse Nicontine patch Counseling on smoking cessation ETOH abuse Counseling on alcohol cessation Chronic back pain symptoms at baseline Stable DVT px on Lovenox CODE STATUS FULL CODE Consultants: Neuro Current Inpatient Medications: Current Inpatient Medications Medications (Trade) Dose Ordered Sig/Ravi Route Start Time Stop Time Status Last Admin Dose Admin Nicotine (Nicoderm Cq 7 Mg Patch) 1 patch QAM TD 10/26/16 08:00 11/25/16 08:59 Ketorolac Tromethamine (Toradol Inj) 30 mg Q6H PRN IV 10/25/16 01:00 10/30/16 00:59 Miscellaneous (Remove Nicoderm Patch) 1 ea HS N/A 10/25/16 21:00 11/24/16 20:59 Ibuprofen (Advil Tab) 400 mg Q6H PRN PO 10/25/16 01:00 11/24/16 00:59 Levetiracetam (Keppra Tab) 100 mg BID PO 10/25/16 08:00 11/24/16 08:59 10/25/16 08:50 100 MG Lisinopril (Zestril Tab) 20 mg QAM PO 10/25/16 08:00 11/24/16 08:59 10/25/16 08:49 20 MG Enoxaparin Sodium (Lovenox Inj) 40 mg Q24H SQ 10/25/16 09:00 11/24/16 08:59 10/25/16 08:51 40 MG Acetaminophen (Tylenol Tab) 650 mg Q4H PRN PO 10/25/16 01:00 11/24/16 00:59 Lorazepam (Ativan Inj) PRN Dosing -Active Protocol Q1H PRN IV 10/25/16 01:00 11/24/16 00:59 Thiamine HCl (Vitamin B-1 Tab) 100 mg QAM PO 10/26/16 08:00 11/25/16 08:59 Multivitamins (Multivitamin Tab) 1 tab QAM PO 10/25/16 08:00 11/24/16 08:59 10/25/16 08:50 1 TAB Folic Acid (Folvite Tab) 1 mg QAM PO 10/25/16 08:00 11/24/16 08:59 10/25/16 08:50 1 MG Lactated Ringer's 1,000 ml @ 75 mls/hr [id number] ONCE IV 10/25/16 03:15 10/25/16 16:34 10/25/16 03:10 75 MLS/HR Ondansetron HCl (Zofran Inj) 4 mg Q6H PRN IV 10/25/16 01:00 11/24/16 00:59 Oxycodone/ Acetaminophen (Percocet 5-325mg Tab) 1 tab Q6H PRN PO 10/25/16 01:00 11/08/16 00:59 10/25/16 14:29 1 TAB Lidocaine (Lidoderm Patch 5%) 1 patch QAM TD 10/26/16 08:00 11/25/16 08:59 Miscellaneous (Remove Lidoderm Patch) 1 ea DAILY@21 N/A 10/25/16 16:00 11/24/16 15:59 Lorazepam 1 mg/ Syringe 1 ml @ 0.5 mls/min Q5M PRN IV 10/25/16 01:00 11/24/16 00:59 Gadobutrol (Gadavist) 10.5 mmol UD PRN IV 10/25/16 02:45 10/29/16 02:44 Miscellaneous (Iv Fluids Completed) 1 ea PRN PRN N/A 10/25/16 03:00 10/25/17 02:59 Gabapentin (Neurontin Tab) 600 mg Q8H PO 10/25/16 23:00 10/26/16 15:01 Gabapentin (Neurontin Tab) 600 mg Q12H PO 10/26/16 06:00 10/26/16 18:01 Gabapentin (Neurontin Tab) 600 mg Q24H PO 10/27/16 08:00 10/27/16 08:01
[2016-10-25] MEDS ORDERED: LEVETIRACETAM 500 MG TAB PO ONE (17:00)
--- NOTE | 2016-10-25 17:53 | DIAGNOSTIC IMAGING REPORT ---
ULTRASOUND OF THE CAROTID ARTERIES CLINICAL HISTORY: Left-sided weakness. COMPARISON STUDY: None. TECHNIQUE: Real-time, grayscale, and color Doppler sonography of the carotid arteries was performed. Imaging reviewed in the transverse and longitudinal planes. NASCET criteria was utilized for stenosis calcification. FINDINGS: There is no significant atherosclerotic plaque present . The peak systolic velocity within the right internal carotid artery is 107 cm/sec. The systolic velocity ratio of right internal to common carotid artery is 0.6. The peak systolic velocity within the left internal carotid artery is 120 cm/sec. The systolic velocity ratio left internal to common carotid artery is 0.6. Antegrade flow is seen in the vertebral arteries. The external carotid arteries are patent. Blood pressure in the right arm measured 141 mm/Hg. Blood pressure in the left arm measured 148 mm/Hg. IMPRESSION: No evidence of hemodynamically significant carotid stenosis. Electronically signed by: Tevin Diane M.D. 10/25/2016 5:52 PM Dictated Date/Time: 10/25/2016 5:51 PM
[2016-10-25 19:01] LABS: PARTIAL THROMBOPLASTIN RATIO 1.2
--- NOTE | 2016-10-25 20:38 | DIAGNOSTIC IMAGING REPORT ---
MR ANGIOGRAPHY OF THE [place] NO CONTRAST CLINICAL HISTORY: severe sudden onset headache after vomiting COMPARISON STUDY: MRI the brain dated 10/25/2016, noncontrast head CT dated 10/24/2016 A 3-D [id number] MR angiographic sequence of the [place] was performed. Both the source and projection images were reviewed. There is no evidence of major intracranial branch occlusion. There is no evidence of intracranial stenosis. There are no lesions suspicious for aneurysm. IMPRESSION: Unremarkable MR angiography of the [place]. Electronically signed by: Tevin Diane M.D. 10/25/2016 8:36 PM Dictated Date/Time: 10/25/2016 8:34 PM
[2016-10-25] MEDS: GABAPENTIN 600MG Q8H DOSE PO SCH (22:07)
[2016-10-25] MEDS: LEVETIRACETAM 500 MG TAB PO SCH (23:44)
[2016-10-26 00:09] VITALS: BP 144/84; PULSE 74; TEMP 36.7; O2SAT 98
--- NOTE | 2016-10-26 05:49 | NEUROLOGY CONSULTATION ---
DATE OF CONSULTATION: 10/25/2016 REASON FOR CONSULTATION: Possible seizure and left-sided weakness. HISTORY OF PRESENT ILLNESS: Mr. Gomez is a 31-year-old right-handed male who I have treated for epilepsy intermittently for several years, but probably not for at least 5 years. He had onset of seizures at approximately age 13. That seizure was a generalized seizure. 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 Having reviewed the EEGs in the chart, I really only see one and that EEG was normal. I note that in the past, he has been on Dilantin, probably started in an Emergency Room setting. We believe he was at least briefly on Lamictal. He was on Depakote for several years. His primary care doctor switched him from Depakote "because it wasn't working" to Keppra. Guillaume thinks he has been having little spells every few months, where he feels funny in the head in a stereotyped way and will remove himself from the situation. He does not lose awareness that last several minutes and has not evolved into a seizure. Last generalized seizure was 8 years ago. On this background, last spell of feeling funny in the head was about 4 months ago. He had that same feeling last evening. He crawled into bed and his girlfriend reports recurrent episodes of altered consciousness with a left facial droop and with Guillaume complaining of the left arm being tingly in between. She describes when she looked at him, it looked he was curled in a ball. It looked like the left face was drooped. It is unclear if there was head or eye deviation. There may have been some head deviation. There was stiffening. It would last 3-4 minutes. He would stop, be confused and then recurred several times. Guillaume came to intermittently in the ambulance and in the Emergency Room. What I see in the ambulance record is that the patient had a rightward gaze and a right facial droop. His blood pressure at the scene was 154 and his glucose was 78. He had just eaten before. Prior triggers include tramadol and sleep deprivation. He was otherwise not sleep deprived and had been eating or drinking well. He had eaten before this episode. He did have a modest headache 2 days prior. He had eaten something at a fast food restaurant, had nausea and then followed by vomiting, followed by a severe headache. No neck stiffness or focal neurologic complaints were noted. He did have some headache after this episode. There was no incontinence. PAST MEDICAL HISTORY: His medical history is notable for hypertension, tobacco abuse, alcohol abuse and chronic back pain. Hepatitis B. He has no history of DVT, PE, SD, or stroke. PAST SURGICAL HISTORY: Skin graft on left face for a dog bite. MEDICATIONS: Keppra 750 b.i.d., the dose having been increased several months ago in an effort to eliminate the small episodes. He indicates he was compliant with medicine. ALLERGIES: No drug allergy. FAMILY HISTORY: His sister has multiple sclerosis. Father, diabetes and rheumatoid arthritis. Mother is well. SOCIAL HISTORY: He smokes a few cigarettes a day and 4-6 bottles of beer per day. There was no absolute or relative drug withdrawal. 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 He has been well. He has a former history of illicit drug use. In the Emergency Room, he was given first 500 of Keppra and then a gram of Keppra. He was given several doses of Ativan and Cogentin. It was indicated that he initially refused Keppra and Ativan, but had a "another episode" in the Emergency Department. When the ER doc was called in, he witnessed the patient to have another episode and he felt the patient was having a dystonic reaction. He was given Cogentin, which seemed to stop the episode. LABORATORY DATA: White count was 8.3, H&H 14/43, and platelet count 227. His PTT was 32.6. CK was 124. Urinalysis negative. Toxicology, positive urine opiates. Confirmatory testing pending. Keppra level pending. Urinalysis negative. Alcohol level less than 3. Electrocardiogram: Mildly abnormal with bifrontal slow wave activity, slightly more prominent on the right and with a paucity of a normal background alpha rhythm throughout most of the recording. Clinically, the patient appeared drowsy and much of this may reflect a transition between wakefulness and drowsiness, but the bifrontal slowing and slight accentuation on the right is mildly worrisome for underlying structural disease. Clinical correlation is advised. PHYSICAL EXAMINATION: GENERAL: The patient is awake and alert. Normal speech and language, oriented x3. HEENT: Head is normocephalic and atraumatic. There is no evidence of bruising. His tongue has no evidence of being bitten. There were no carotid bruits. HEART: No heart murmurs. Heart is regular rate and rhythm. LUNGS: Clear. EXTREMITIES: No calf swelling or tenderness. Peripheral pulses are intact. NEUROLOGIC: Pupils are equal. Optic nerves unremarkable. Normal landeros, motility, and facial symmetry. Symmetric strength. No drift. Normal rapid alternating movements. Normal bulk and tone. Symmetric reflexes. Downgoing toes. [id number] and [id number] are normal. MRI of the brain with and without contrast, some nonspecific changes in the white matter. Otherwise unremarkable. Head CT, no acute findings. Chest x-ray, mild hypoinflation. IMPRESSION: This patient had several episodes of somewhat atypical behavior with loss of consciousness preceded by what has typically been an aura for this patient. I suspect these are either partial complex or secondary generalized seizures. The ER hypothesized that they may have been dystonic reaction, although the patient was not otherwise on anything that he admits to that have caused the dystonic reaction and dystonic reaction would typically not cause bifrontal slowing with some asymmetry nor would I typically expect some focal neurologic complaints thereafter. The neurologic symptoms noted might have been poorly described as the bystander has no prior experience with the patient's spells. The EMS described eye deviation to the right. It is very possible that the neurologic symptoms after the event represented some postictal phenomenon. I am also suspicious of that given the predominance of the right frontal slowing and the left body symptoms. PLAN: Due to the severity of the onset of headache associated, we will do an MRA and do a vascular workup including carotid ultrasound, echocardiography. Repeat the PTT to see if there is elevation or a lupus anticoagulant if there in fact is. I changed the dose of Keppra. He had been on 750 b.i.d. when it was renewed at our facility, he was started 100 b.i.d. We will give him 1000 mg now and then ad midnight another 1000 mg and starting tomorrow, 1000 mg b.i.d. to help to monitor for irritability and resolution for the smaller episodes, which are likely simple partial seizures. If they do not resolve, we will have to revisit some of the other medications to see if we really did try Lamictal in the past and it may be an option that he be referred eventually to [place] for epilepsy monitoring. He may not have a primary generalized epilepsy and if his control has been on multiple doses of therapeutic drugs, he may be a candidate for evaluation for seizure surgery. We will follow with you. ANUPAM
[2016-10-26] MEDS ORDERED: GABAPENTIN 600MG Q12H DOSE PO SCH (06:00)
[2016-10-26] MEDS: GABAPENTIN 600MG Q8H DOSE PO SCH ×2 (06:40→14:37)
[2016-10-26] MEDS: LISINOPRIL 20 MG TAB PO SCH (06:58)
[2016-10-26] MEDS: LEVETIRACETAM 500 MG TAB PO SCH (06:58)
[2016-10-26] MEDS: MULTIVITAMIN TAB PO SCH (06:58)
[2016-10-26] MEDS: OXYCODONE/ACETAMINOPHEN 5-325 TAB PO PRN ×2 (06:58→13:09)
[2016-10-26] MEDS: ENOXAPARIN 40 MG/0.4 ML SYR SQ SCH (07:03)
[2016-10-26] MEDS ORDERED: THIAMINE HCL 100 MG TAB PO SCH (08:00)
[2016-10-26] MEDS ORDERED: LIDODERM (LIDOCAINE) PATCH 5% TD SCH (08:00)
[2016-10-26] MEDS ORDERED: NICOTINE 7 MG/24 HR TDSY TD SCH (08:00)
[2016-10-26 08:04] VITALS: BP 147/93; PULSE 67; TEMP 36.8; O2SAT 100
--- NOTE | 2016-10-26 15:10 | ECHOCARDIOGRAM REPORT ---
*NOTICE TO RECEIVING [facility] This information is strictly Confidential and protected under [place] law. [place] law prohibits you from making any further disclosure of this information unless further disclosure is expressly permitted by the written consent of the person to whom it pertains or is authorized by law. A general authorization for the release of medical or other information is not sufficient for this purpose. Hospital accepts no responsibility if the information is made available to any other person, INCLUDING THE PATIENT. Interpretation Summary * Name: HAJA TURNER Study Date: 10/26/2016 07:48 AM BP: 147/93 mmHg * Patient Location: [id number] HR: 67 * : 1985 (M/d/yyyy) Gender: Male Height: 72 in * Age: 31 yrs Ethnicity: CA Weight: 233 lb * Ordering Physician: Elizabeth Harrison * Referring Physician: Self, Referred * Performed By: Jessie Reynoso RDCS * * Reason For Study: LEFT-SIDED WEAKNESS * BSA: 2.3 m2 * -- Conclusions -- * The left ventricle is normal in size. * There is normal left ventricular wall thickness. * The left ventricular wall motion is normal. * Left ventricular systolic function is normal. * Ejection Fraction = 55-60%. * There is no significant valve disease * The interatrial septum is intact with no evidence for an atrial septal defect. * Injection of contrast documented no interatrial shunt. Procedure Details * A saline contrast injection was performed to assess for cardiac shunting. * The injection was performed through an intravenous line in the left arm. * The attending nurse who injected the saline contrast was MITCHEL VINCENT RN. * A total of 20 cc of agitated saline was given. * A complete two-dimensional transthoracic echocardiogram was performed (2D, M-mode, Doppler and color flow Doppler). Left Ventricle * The left ventricle is normal in size. * There is normal left ventricular wall thickness. * Ejection Fraction = 55-60%. * Left ventricular systolic function is normal. * The left ventricular wall motion is normal. * No regional wall motion abnormalities noted. Right Ventricle * The right ventricle is normal in size and function. Atria * The left atrial size is normal. * Right atrial size is normal. * The interatrial septum is intact with no evidence for an atrial septal defect. * Injection of contrast documented no interatrial shunt. Mitral Valve * The mitral valve is normal. * There is no mitral valve stenosis. * There is trace mitral regurgitation. Tricuspid Valve * The tricuspid valve is normal. * There is no tricuspid stenosis. * There is trace tricuspid regurgitation. Aortic Valve * The aortic valve is trileaflet. * No hemodynamically significant valvular aortic stenosis. * No aortic regurgitation is present. Pulmonic Valve * The pulmonic valve is not well visualized. Great Vessels * The aortic root is normal size. Pericardium/Pleural * There is no pericardial effusion. Great Vessels * Normal inferior vena cava diameter and respiratory variation suggests normal central venous pressure. MMode 2D Measurements and Calculations IVSd 0.99 cm IVSs 1.4 cm LVIDd 4.6 cm LVIDs 3.3 cm LVPWd 0.93 cm LVPWs 1.7 cm IVS/LVPW 1.1 FS 28.1 % EDV(Teich) 96.0 ml ESV(Teich) 43.7 ml EF(Teich) 54.5 % EDV(cubed) 95.7 ml ESV(cubed) 35.5 ml EF(cubed) 62.9 % % IVS thick 41.7 % % LVPW thick 83.3 % LV mass(C)d 148.0 grams LV mass(C)dI 65.1 grams/m\S\2 LV mass(C)s 187.2 grams LV mass(C)sI 82.4 grams/m\S\2 SV(Teich) 52.3 ml SI(Teich) 23.0 ml/m\S\2 SV(cubed) 60.2 ml SI(cubed) 26.5 ml/m\S\2 Ao root diam 3.1 cm Ao root area 7.7 cm\S\2 LA dimension 3.9 cm LA/Ao 1.2 LVAd ap4 44.0 cm\S\2 LVLd ap4 10.0 cm EDV(MOD-sp4) 152.4 ml EDV(sp4-el) 164.1 ml LVAs ap4 27.5 cm\S\2 LVLs ap4 8.7 cm ESV(MOD-sp4) 70.4 ml ESV(sp4-el) 74.2 ml EF(MOD-sp4) 53.8 % EF(sp4-el) 54.8 % LVAd ap2 37.6 cm\S\2 LVLd ap2 10.0 cm EDV(MOD-sp2) 116.0 ml EDV(sp2-el) 120.6 ml LVAs ap2 23.2 cm\S\2 LVLs ap2 8.4 cm ESV(MOD-sp2) 53.9 ml ESV(sp2-el) 54.0 ml EF(MOD-sp2) 53.6 % EF(sp2-el) 55.2 % LVLd %diff -0.61 % EDV(MOD-bp) 134.5 ml LVLs %diff -2.87 % ESV(MOD-bp) 62.5 ml EF(MOD-bp) 53.5 % SV(MOD-sp4) 82.0 ml SI(MOD-sp4) 36.1 ml/m\S\2 SV(MOD-sp2) 62.1 ml SI(MOD-sp2) 27.3 ml/m\S\2 SV(MOD-bp) 72.0 ml SI(MOD-bp) 31.7 ml/m\S\2 SV(sp4-el) 89.9 ml SI(sp4-el) 39.6 ml/m\S\2 SV(sp2-el) 66.6 ml SI(sp2-el) 29.3 ml/m\S\2 Doppler Measurements and Calculations MV E max mae 82.0 cm/sec MV A max mae 49.5 cm/sec MV E/A 1.7 MV dec time 0.14 sec Ao V2 max 119.0 cm/sec Ao max PG 5.7 mmHg Ao max PG (full) 2.4 mmHg LV V1 max PG 3.3 mmHg LV V1 max 90.2 cm/sec
[2016-10-26 15:42] VITALS: BP 146/89; PULSE 72; TEMP 36.7; O2SAT 99
--- NOTE | 2016-10-26 17:19 | Progress Note ---
Medicine Progress Note Date & Time of Visit: Oct 26, 2016 at 17:12. Subjective Pt was seen and examined Lying in bed comfortable with no distress Pt said that he feels fine Denies any chest pain, palpitation, dizziness and sob Objective Last 8 Hrs Date Time Temp Pulse Resp B/P (MAP) Pulse Ox O2 Delivery O2 Flow Rate FiO2 10/26/16 16:00 Room Air 10/26/16 15:42 36.7 72 19 146/89 (108) 99 Room Air Physical Exam: General- No acute distress Head- atraumatic Eyes- PERRL, EOMI ENT- oropharynx clear Neck- supple, no JVD Lungs- clear to auscultation Heart- regular rhythm; no murmur Abdomen- normal bowel sounds, soft Extremities- no pretibial edema, no calf tenderness Neuro- alert, oriented x 3; PERRL, EOMI; no facial palsy; no dysarthria Skin- warm & dry Laboratory Results: Last 24 Hours Test 10/25/16 18:43 Activated Partial Thromboplast Time 31.2 SECONDS Partial Thromboplastin Ratio 1.2 Assessment & Plan Seizures Unclear presentation. Has been complaint with seizure med. Keppra increased to 1000 mg BID EEG showed mildly abnormal bifrontal slow wave activity. No evidence of epileptogenic activity. MRI Head done showed no acute intracranial abnormality MRA head showed no acute abnormality Doppler U/S showed no evidence of hemodynamically significant carotid stenosis. No driving until until no seizure activity for 6 months Neuro on board Follow up with neuro in 2 weeks Seizure precaution Hypokalemia Monitor BMP Resolved Hypertension Continue Lisinopril Stable Tobacco abuse Nicotine patch Counseling on smoking cessation ETOH abuse Counseling on alcohol cessation Chronic back pain symptoms at baseline Stable DVT px on Lovenox CODE STATUS FULL CODE Disposition Follow up with your PCP dr. Lerma on Nov 03 @ 11:00 am Consultants: Neuro Current Inpatient Medications: Current Inpatient Medications Medications (Trade) Dose Ordered Sig/Ravi Route Start Time Stop Time Status Last Admin Dose Admin Nicotine (Nicoderm Cq 7 Mg Patch) 1 patch QAM TD 10/26/16 08:00 11/25/16 08:59 10/26/16 06:59 1 PATCH Ketorolac Tromethamine (Toradol Inj) 30 mg Q6H PRN IV 10/25/16 01:00 10/30/16 00:59 10/25/16 17:13 30 MG Miscellaneous (Remove Nicoderm Patch) 1 ea HS N/A 10/25/16 21:00 11/24/16 20:59 Ibuprofen (Advil Tab) 400 mg Q6H PRN PO 10/25/16 01:00 11/24/16 00:59 Lisinopril (Zestril Tab) 20 mg QAM PO 10/25/16 08:00 11/24/16 08:59 10/26/16 06:58 20 MG Enoxaparin Sodium (Lovenox Inj) 40 mg Q24H SQ 10/25/16 09:00 11/24/16 08:59 10/26/16 07:03 40 MG Acetaminophen (Tylenol Tab) 650 mg Q4H PRN PO 10/25/16 01:00 11/24/16 00:59 Lorazepam (Ativan Inj) PRN Dosing -Active Protocol Q1H PRN IV 10/25/16 01:00 11/24/16 00:59 Thiamine HCl (Vitamin B-1 Tab) 100 mg QAM PO 10/26/16 08:00 11/25/16 08:59 10/26/16 06:57 100 MG Multivitamins (Multivitamin Tab) 1 tab QAM PO 10/25/16 08:00 11/24/16 08:59 10/26/16 06:58 1 TAB Folic Acid (Folvite Tab) 1 mg QAM PO 10/25/16 08:00 11/24/16 08:59 10/26/16 06:59 1 MG Ondansetron HCl (Zofran Inj) 4 mg Q6H PRN IV 10/25/16 01:00 11/24/16 00:59 Oxycodone/ Acetaminophen (Percocet 5-325mg Tab) 1 tab Q6H PRN PO 10/25/16 01:00 11/08/16 00:59 10/26/16 13:09 1 TAB Lidocaine (Lidoderm Patch 5%) 1 patch QAM TD 10/26/16 08:00 11/25/16 08:59 10/26/16 06:59 1 PATCH Miscellaneous (Remove Lidoderm Patch) 1 ea DAILY@21 N/A 10/25/16 16:00 11/24/16 15:59 10/25/16 16:57 1 EA Lorazepam 1 mg/ Syringe 1 ml @ 0.5 mls/min Q5M PRN IV 10/25/16 01:00 11/24/16 00:59 Gadobutrol (Gadavist) 10.5 mmol UD PRN IV 10/25/16 02:45 10/29/16 02:44 Miscellaneous (Iv Fluids Completed) 1 ea PRN PRN N/A 10/25/16 03:00 10/25/17 02:59 10/25/16 16:39 1 EA Levetiracetam (Keppra Tab) 1,000 mg BID PO 10/26/16 00:00 11/25/16 00:00 10/26/16 06:58 1,000 MG Gabapentin (Neurontin Tab) 600 mg Q24H PO 10/28/16 08:00 10/28/16 08:01 Gabapentin (Neurontin Tab) 600 mg Q12H PO 10/27/16 06:00 10/27/16 18:01
[2016-10-26] MEDS ORDERED: KPP/1000 PO (17:42)
--- NOTE | 2016-10-26 17:56 | PROGRESS NOTE ---
DATE: 10/26/2016 SUBJECTIVE: I am Guillaume in followup of an episode of likely a seizure. Performed an MRI of the brain, which showed no significant infarct and an MRA of the head due to sudden onset of a severe headache and that showed no significant aneurysm or stenosis. Carotid ultrasound was normal as well and echocardiography was nonrevealing. He had received additional Keppra in the Emergency Room and we bumped his dose up to 1000 b.i.d. He is taking and tolerating that well. He has not had any recurrent symptoms. PHYSICAL EXAMINATION: He is awake and alert. There is normal speech and language. His affect is appropriate. There is normal [id number]-zr-[id number] and zzwx-[id number] ____. IMPRESSION: Seizure disorder. Suspect that this episode was a seizure and some of the focality noted with facial droop was probably postictal. We will continue this dose of Keppra. I will see him in the office. If he continues to have episodes, we may increase the dose of Keppra further. Alternatively, may try Lamictal. Alternatively, if he continues to have simple partial seizures, would consider referring him to [facility] for inpatient monitoring. The patient may not drive for 6 months. He should not operate any heavier or dangerous machinery, be at heights, swim alone, or bathe alone and the patient understands. He may return to work if his employer has an appropriate position for him. He should be seen in my office in the next 2 or 3 weeks. ANUPAM
--- NOTE | 2016-10-26 17:58 | Discharge Instructions ---
Discharge Instructions Date of Service Oct 26, 2016. Admission Reason for Admission: Seizure Discharge Discharge Diagnosis / Problem: Seizure Discharge Goals Goal(s): Decrease discomfort, Increase independence, Improve disease control Activity Recommendations Activity Limitations: resume your previous activity . Instructions / Follow-Up Instructions / Follow-Up Follow up with your primary care provider Dr. Lerma on Nov 03 @ 11:00 AM Follow up with Neurology Dr. Harrison in [address] [place] [address] No driving or operate any machine for now until your next follow up appointment with neurology Seizure and fall precaution No activity at high level Keppra increased to 1000 mg twice a day Current Hospital Diet Patient's current hospital diet: AHA Diet (Heart Healthy) Discharge Diet Recommended Diet: Regular Diet Pending Studies Studies pending at discharge: no Medical Emergencies . Who to Call and When: Medical Emergencies: If at any time you feel your situation is an emergency, please call 911 immediately. . Non-Emergent Contact Non-Emergency issues call your: Primary Care Provider Call Non-Emergent contact if: you have any medication questions . . "Provider Documentation" section prepared by Cassie Haider. . VTE Core Measure Inpt VTE Proph given/why not?: Enoxaparin (Lovenox)SQ [place] Drug Monitoring Program Search Results: no issues identified
[2016-10-26] MEDS ORDERED: OXYC-57 PO (18:00)
[2016-10-26 18:03] VITALS: BP 146/89; PULSE 72; TEMP 36.7; O2SAT 99
[2016-10-27] MEDS ORDERED: GABAPENTIN 600MG Q12H DOSE PO SCH (06:00)
[2016-10-27] MEDS ORDERED: GABAPENTIN 600MG X1 DOSE PO SCH (08:00)
--- NOTE | 2016-10-27 08:15 | Discharge Summary ---
Discharge Summary Date of Service Oct 27, 2016. Discharge Summary Admission Date: Oct 25, 2016 at 00:50 Discharge Date: Oct 26, 2016 Discharge Disposition: Home Principal Diagnosis: Seizure Secondary Diagnoses/Problems: Hypokalemia HTN Tobacco abuse Chronic Back Pain Procedures: MR ANGIOGRAPHY OF THE [place] NO CONTRAST CLINICAL HISTORY: severe sudden onset headache after vomiting COMPARISON STUDY: MRI the brain dated 10/25/2016, noncontrast head CT dated 10/24/2016 A 3-D hkls-tm-[id number] MR angiographic sequence of the [place] was performed. Both the source and projection images were reviewed. There is no evidence of major intracranial branch occlusion. There is no evidence of intracranial stenosis. There are no lesions suspicious for aneurysm. IMPRESSION: Unremarkable MR angiography of the [place]. Electronically signed by: Tevin Diane M.D. 10/25/2016 8:36 PM Dictated Date/Time: 10/25/2016 8:34 PM ULTRASOUND OF THE CAROTID ARTERIES CLINICAL HISTORY: Left-sided weakness. COMPARISON STUDY: None. TECHNIQUE: Real-time, grayscale, and color Doppler sonography of the carotid arteries was performed. Imaging reviewed in the transverse and longitudinal planes. NASCET criteria was utilized for stenosis calcification. FINDINGS: There is no significant atherosclerotic plaque present . The peak systolic velocity within the right internal carotid artery is 107 cm/sec. The systolic velocity ratio of right internal to common carotid artery is 0.6. The peak systolic velocity within the left internal carotid artery is 120 cm/sec. The systolic velocity ratio left internal to common carotid artery is 0.6. Antegrade flow is seen in the vertebral arteries. The external carotid arteries are patent. Blood pressure in the right arm measured 141 mm/Hg. Blood pressure in the left arm measured 148 mm/Hg. IMPRESSION: No evidence of hemodynamically significant carotid stenosis. Electronically signed by: Tevin Diane M.D. 10/25/2016 5:52 PM Dictated Date/Time: 10/25/2016 5:51 PM Brain MRI WITH AND WITHOUT CONTRAST HISTORY: L arm jerks TECHNIQUE: Multiplanar multisequence MRI of the brain was performed both before and after the intravenous administration of contrast. COMPARISON STUDY: None. FINDINGS: There are no areas of restricted diffusion to suggest acute infarction. The midline structures are intact. Mild mucosal thickening within the left maxillary sinus and ethmoid air cells. The mastoid air cells are clear. The ventricles and sulci are within normal limits for age. There is no mass, hematoma, midline shift. The major vascular flow-voids at the skull base are well maintained. Postcontrast sequences show no areas of abnormal enhancement. Punctate focus of questionable enhancement within the left high convexity on image 17 of series 12 likely represents a vessel. There is also a single punctate focus of T2 hyperintensity within the subcortical white matter of the right frontal lobe at the high convexity best seen on image 11 of the coronal FLAIR sequences. This is of doubtful clinical significance. The temporal lobes are symmetric. No evidence for a matter heterotopia. IMPRESSION: No acute intracranial abnormality. There is a single punctate focus of T2 hyperintensity within the subcortical white matter of the right frontal lobe. This is of doubtful clinical significance. Electronically signed by: Tano Gallegos M.D. 10/25/2016 7:46 AM Dictated Date/Time: 10/25/2016 7:[address] OF THE HEAD WITHOUT CONTRAST CLINICAL HISTORY: Stroke alert. COMPARISON STUDY: Head CT March 14, 2010. CT DOSE: 537.48 mGy.cm TECHNIQUE: Helical axial images of the head were obtained without IV contrast. Automated exposure control was utilized for the study. A dose lowering technique was utilized adhering to the principles of ALARA. FINDINGS: No acute intracranial hemorrhage, midline shift or mass effect is present. Ventricular system is normal. Basilar cisterns are patent. There are no extra-axial collections. Gonzales-white differentiation is maintained. There are no findings to suggest acute dural sinus thrombosis or acute territorial infarct. There are no significant calvarial abnormalities. There is minimal mucosal thickening of the ethmoid sinuses. IMPRESSION: No acute intracranial findings. Electronically signed by: Leonel Shah M.D. 10/24/2016 10:59 PM Dictated Date/Time: 10/24/2016 10:55 PM [~ rep ct add3]] CHEST ONE VIEW PORTABLE HISTORY: 31 years-old Male acute strokelike symptoms COMPARISON: None available TECHNIQUE: Portable upright AP view of the chest FINDINGS: Cardiac silhouette is upper limits of normal, likely accentuated by technique. Patient is slightly rotated to the right. There is no pneumothorax, pleural effusion or focal airspace consolidation. There is minimal right hemidiaphragmatic elevation. The lungs are mildly hypoinflated. The bones are grossly intact. IMPRESSION: Mild hypoinflation without acute cardiopulmonary process. The above report was generated using voice recognition software. It may contain grammatical, syntax or spelling errors. Electronically signed by: Jean Cedeno M.D. 10/25/2016 6:40 AM Dictated Date/Time: 10/25/2016 6:39 AM Consultations: Neuro Medication Reconciliation New Medications: Oxycodone/Acetaminophen 5MG/325MG (Percocet 5MG/325MG) Tab 1 TAB PO Q12 PRN for Pain for 5 Days, #10 TAB PAIN Changed Medications: Levetiracetam (Keppra) 1,000 Mg Tab 1 TAB PO BID for 30 Days, #60 TAB 0 Refills (Changed from: Levetiracetam (Keppra ) 750 Mg Tab 750 Mg PO BID) Continued Medications: Lisinopril/Hctz (Prinzide 20-25MG) Tab 1 TAB PO DAILY, TAB Admission Information HPI (per Admitting provider): CHIEF COMPLAINT: L sided weakness HISTORY OF PRESENT ILLNESS: History obtained from patient, mirzae, and records. Medical history significant for seizure disorder, ongoing tobacco and alcohol abuse, hypertension, chronic back pain. Over the weekend, px got sick after eating a hamburger. Nausea/vomiting symptoms. Some abdominal pain. No diarrhea. Symptoms resolved. Last night, patient was getting ready for bed when mirza noted possible drooping on left side of his face. Patient "curled up" as per denny's account. Confusion noted. No tongue biting, no incontinence. Patient can just remember some details of events. At the Emergency Room, jerking of the arms noted especially more on the left. Patient confused through episode. Patient also noted achy left-sided headache symptoms. Different from usual "grand mal" seizure attacks from many years back. Patient compliant with home medications. Admits to nightly alcohol intake. Does not think it's a problem though. Patient claims alcohol makes upper extremity jerks stop. No chest pain, no shortness of breath. Currently comfortable. Physical Exam (per Admitting): VITAL SIGNS: Blood pressure was noted to be 127/78, pulse rate 89, RR 18 temperature 36.4, sats 99 on room air. GENERAL: Noted to be slightly anxious, obese, no respiratory distress. SKIN: Normal color. HEENT: [place] palpebral conjunctivae. Dry mucosa. NECK: Short neck. LUNGS: Decreased breath sounds. HEART: Regular rate and rhythm. ABDOMEN: Soft. EXTREMITIES: No edema, no tenderness. NEUROLOGIC: No gross focality. Hospital Course Seizures Unclear presentation. Has been complaint with seizure med. Keppra increased to 1000 mg BID EEG showed mildly abnormal bifrontal slow wave activity. No evidence of epileptogenic activity. MRI Head done showed no acute intracranial abnormality MRA head showed no acute abnormality Doppler U/S showed no evidence of hemodynamically significant carotid stenosis. No driving until until no seizure activity for 6 months Neuro on board Follow up with neuro in 2 weeks Seizure precaution Hypokalemia Monitor BMP Resolved Hypertension Continue Lisinopril Stable Tobacco abuse Nicotine patch Counseling on smoking cessation ETOH abuse Counseling on alcohol cessation Chronic back pain symptoms at baseline Stable DVT px on Lovenox CODE STATUS FULL CODE Disposition Follow up with your PCP dr. Lerma on Nov 03 @ 11:00 am Total time spent on discharge = 35 minutes This includes examination of the patient, discharge planning, medication reconciliation, and communication with other providers. Discharge Instructions Discharge Instructions Date of Service Oct 26, 2016. Admission Reason for Admission: Seizure Discharge Discharge Diagnosis / Problem: Seizure Discharge Goals Goal(s): Decrease discomfort, Increase independence, Improve disease control Activity Recommendations Activity Limitations: resume your previous activity . Instructions / Follow-Up Instructions / Follow-Up Follow up with your primary care provider Dr. Lerma on Nov 03 @ 11:00 AM Follow up with Neurology Dr. Harrison in [address], [place] [address] No driving or operate any machine for now until your next follow up appointment with neurology Seizure and fall precaution No activity at high level Keppra increased to 1000 mg twice a day Current Hospital Diet Patient's current hospital diet: AHA Diet (Heart Healthy) Discharge Diet Recommended Diet: Regular Diet Pending Studies Studies pending at discharge: no Medical Emergencies . Who to Call and When: Medical Emergencies: If at any time you feel your situation is an emergency, please call 911 immediately. . Non-Emergent Contact Non-Emergency issues call your: Primary Care Provider Call Non-Emergent contact if: you have any medication questions . . "Provider Documentation" section prepared by Cassie Haider. . VTE Core Measure Inpt VTE Proph given/why not?: Enoxaparin (Lovenox)SQ [place] Drug Monitoring Program Search Results: no issues identified Additional Copies To Lukasz Lerma M.D.
[2016-10-27 15:55] LABS: COD UR NEGATIVE NG/ML (CUTOFF=50); HYDROCOD UR 255 NG/ML (CUTOFF=50); HYDROMOR UR 159 NG/ML (CUTOFF=50); MORPHINE UR NEGATIVE NG/ML (CUTOFF=50); NORHYDROCODONE CONF UR 293 NG/ML (CUTOFF=50); OXYMORPH UR NEGATIVE NG/ML (CUTOFF=50)
[2016-10-28] MEDS ORDERED: GABAPENTIN 600MG X1 DOSE PO SCH (08:00)
== END 2016-10-26 18:15 | disposition home or self-care (01) ==
LOC: C.EDB 22:46 → EDBD 22:46 → C.MS4W 10-25 00:50 → ENRESERV 10-25 01:00
PROVIDERS: ADMIT Internal Medicine; ATTEND Internal Medicine
DX: G40.909 Epilepsy, unspecified, not intractable, without status epilepticus (principal); E87.6 Hypokalemia; F17.200 Nicotine dependence, unspecified, uncomplicated; M54.9 Dorsalgia, unspecified; I10 Essential (primary) hypertension; Z83.79 Family history of other diseases of the digestive system; Z82.49 Family history of ischemic heart disease and other diseases of the circulatory system; Z82.3 Family history of stroke

== ENCOUNTER 2017-02-22 23:46 | Emergency (ER) | payer BC, OTHER ==
[~2017-02-22] VITALS: Ht 185.4 cm; Wt 108.0 kg
[~2017-02-22 23:46] MED LIST changes: +KPP/1000 PO; -KPP/750 PO
[2017-02-22 23:51] VITALS: TEMP 36.6; Ht 185.4 cm; Wt 108.0 kg
--- NOTE | 2017-02-23 00:18 | EMERGENCY ROOM VISIT NOTE ---
History Report prepared by Nalini: Jose De Jesus Escobar Under the Supervision of: Dr. Tiffany Oneal D.O. First contact with patient: 23:56 Chief Complaint: REFERRED BY DOCTOR Stated Complaint: REF BY DR History of Present Illness The patient is a 31 year old male who presents to the Emergency Room with complaints of three seizures that occurred earlier this evening. He has a past medical history of a seizure disorder and hypertension. This evening, the patient had three seizures witnessed by his girlfriend who called EMS. They called into the hospital for a refusal, but was told that the patient could not refuse because he was intoxicated. He was then brought in by the police. The patient states that he has been having seizures since he was 13 years old and does not have a drivers license because of it. He is on Lisinopril, Keppra, and Ativan for seizure control. He denies any pain, injury, or any other abnormal symptoms. He did not hit his head. He denies any other drug use. He denies any other health problems. He has been following up with Dr. Remy of Neurology. The patient drinks alcohol regularly, but states that he would not withdrawal if he stopped. His last seizure was a couple of days ago. Source of History: patient, police, spouse/significant other Onset: earlier this evening Position: other (Global) Symptom Intensity: 3 episodes Quality: other (Seizures) Timing: intermittent Note: The patient is intoxicated. He denies any falls, injury, or head trauma. He denies any other abnormal symptoms. Review of Systems See HPI for pertinent positives & negatives. A total of 10 systems reviewed and were otherwise negative. Past Medical & Surgical Medical Problems: (1) HTN (hypertension) (2) Seizure Family History Gallbladder disease Hypertension Seizures Social History Smoking Status: Current Every Day Smoker Alcohol Use: occasionally Drug Use: none Marital Status: in relationship Housing Status: lives with family Occupation Status: employed Current/Historical Medications Scheduled Levetiracetam (Keppra), 1,000 MG PO BID Lisinopril/Hctz (Prinzide 20-25MG), 1 TAB PO DAILY Allergies Coded Allergies: NO KNOWN DRUG ALLERGIES (Unverified Allergy, Unknown, none, 02/23/17) Physical Exam Vital Signs Date Time Temp Pulse Resp B/P (MAP) Pulse Ox O2 Delivery O2 Flow Rate FiO2 02/23/17 06:10 76 18 96 02/23/17 05:55 87 15 98 02/23/17 05:40 86 15 02/23/17 05:31 124/67 02/23/17 05:25 77 20 96 02/23/17 05:10 82 19 97 02/23/17 05:00 111/69 02/23/17 04:55 83 19 96 02/23/17 04:40 83 19 96 02/23/17 04:35 80 20 96 02/23/17 04:30 106/69 02/23/17 04:20 82 20 92 02/23/17 04:11 78 02/23/17 04:05 77 19 92 02/23/17 04:01 135/69 02/23/17 03:50 84 22 94 02/23/17 03:35 81 21 95 02/23/17 03:30 107/74 02/23/17 03:25 77 20 95 02/23/17 03:10 76 23 94 02/23/17 03:00 114/74 02/23/17 02:55 79 21 95 02/23/17 02:40 82 13 94 02/23/17 02:30 120/56 02/23/17 02:25 79 19 93 02/23/17 02:10 91 92 02/23/17 02:00 111/53 02/23/17 01:55 81 21 94 02/23/17 01:40 81 21 94 02/23/17 01:35 84 21 94 02/23/17 01:30 111/62 02/23/17 01:22 133/79 02/23/17 01:06 91 18 96 02/23/17 01:05 100 96 02/23/17 01:02 57 02/23/17 01:00 143/92 02/23/17 00:56 99 97 02/23/17 00:53 154/78 02/23/17 00:46 93 95 02/23/17 00:38 156/81 02/23/17 00:36 103 28 98 Room Air 02/23/17 00:34 114 02/23/17 00:30 145/114 02/22/17 23:51 36.6 93 18 157/108 97 Room Air Physical Exam General: Mildly intoxicated appearing. HEENT: Head - normocephalic and atraumatic Pupils are equal, round, and reactive to light. Extraocular eye muscles are intact, and sclera are anicteric. Nose - moist nasal mucosa without discharge. Mouth - moist buccal mucosa. Oropharynx is nonerythematous and there is no tonsillar exudate or edema noted. Neck: Supple; no JVD, nuchal rigidity, cervical lymphadenopathy Heart: Regular rate and rhythm. There is a normal S1 and S2 with no murmurs, clicks, or gallops appreciated. Lungs: Clear to auscultation bilaterally with no wheezes, rales, or rhonchi. Abdomen: Soft, completely nontender, nondistended, with good bowel sounds. There are no palpable pulsatile masses or hepatosplenomegaly. There is no guarding, rigidity, or rebound noted. Extremities: No evidence of cyanosis, clubbing, or edema. There are easily palpable peripheral pulses. Skin: warm and dry with good turgor and no rashes. Medical Decision & Procedures Laboratory Results 02/23/17 00:57 02/23/17 00:57 Test 02/23/17 00:57 Red Blood Count 5.34 M/uL (4.7-6.1) Mean Corpuscular Volume 84.8 fL (80-100) Mean Corpuscular Hemoglobin 30.7 pg (25-34) Mean Corpuscular Hemoglobin Concent 36.2 g/dl (32-36) RDW Standard Deviation 36.1 fL (36.4-46.3) RDW Coefficient of Variation 11.8 % (11.5-14.5) Mean Platelet Volume 10.0 fL (7.4-10.4) Anion Gap 9.0 mmol/L (3-11) Est Creatinine Clear Calc Drug Dose 130.2 ml/min Estimated GFR () 108.8 Estimated GFR (Non- 93.9 BUN/Creatinine Ratio 12.4 (10-20) Calcium Level 8.4 mg/dl (8.5-10.1) Total Bilirubin 0.3 mg/dl (0.2-1) Direct Bilirubin < 0.1 mg/dl (0-0.2) Aspartate Amino Transf (AST/SGOT) 16 U/L (15-37) Alanine Aminotransferase (ALT/SGPT) 35 U/L (12-78) Alkaline Phosphatase 69 U/L (45-117) Total Protein 7.2 gm/dl (6.4-8.2) Albumin 3.9 gm/dl (3.4-5.0) Ethyl Alcohol mg/dL 219.0 mg/dl (0-3) Laboratory results per my review. Medications Administered Medications (Trade) Dose Ordered Sig/Ravi Route Start Time Stop Time Status Last Admin Dose Admin Lorazepam (Ativan Inj) 2 mg STK-MED ONCE .ROUTE 02/23/17 00:23 02/23/17 00:24 DC 02/23/17 00:27 2 MG Haloperidol Lactate (Haldol Inj) 10 mg STK-MED ONCE .ROUTE 02/23/17 00:23 02/23/17 00:24 DC 02/23/17 00:27 10 MG Procedure Haldol Inj 10 mg IM Ativan Inj 2 mg IM ED Course 2356: Past medical records reviewed. The patient was evaluated in room B6. A complete history and physical exam was performed. Seizure precautions were taken. Labs were drawn as above. 0023: I was informed that the patient had become belligerent and combative toward security staff. He came running out of his room and grabbed one the security guards by the neck. He was then restrained. He was placed in Locked limb restraints and given 10 mg of Haldol and 2 mg of Ativan for his own safety and the safety of our hospital staff. 0101: The patient is not yet asleep, but he is more cooperative. He remains in his restraints. 0112: The patient is now out of his restraints because he has been cooperative and had to go to the bathroom. 0209: Upon reevaluation, the patient is asleep. 0401: The patient continues to be asleep. 0540: I spoke with the patient at this time. He was very pleasant. He is hemodynamically stable with no further seizure activity. I encouraged him to follow up with Dr. Hernandez today to tell them that he has been having more frequent seizures. I discussed findings and results with him. He verbalized agreement of the treatment plan. He was discharged home. 0640: The patient informed us that his mother is coming to get him and will be here at 0700 to take him home. Medical Decision The patient is a 31 year old male who presents to the ED with 3 episodes of seizures. Differential diagnosis includes medication noncompliance, alcohol overdose, seizure, and status epilepticus. Laboratory Results: ETOH 219, white blood cell count normal, normal H&H, glucose 102, normal renal function and LFTs This is a 31-year-old male patient who presents to the emergency department after consuming alcohol and suffering 3 seizures according to his girlfriend. The patient has suffered from a seizure disorder since he was 13 years old. He has been having increased episodes of seizure activity and is followed by neurology. He is scheduled to have a prolonged EEG in the middle of February. I discussed the situation with the patient. He became belligerent while here in the emergency department and had to be restrained. I encouraged him to avoid such excessive alcohol use in the future. I confirmed with him that he does not drive a vehicle secondary to his seizure disorder. We talked about status epilepticus and the need for close follow-up with neurology. Medication Reconcilliation Current Medication List: was personally reviewed by me Blood Pressure Screening Patient's blood pressure: Elevated blood pressure Blood pressure disposition: Elevated BP felt to be situational Impression Primary Impression: Alcohol overdose Additional Impression: Seizure Critical Care I have personally spent greater than 30 minutes of critical care time in the direct management of this patient. This includes bedside care, interpretation of diagnostic studies, and testing, discussion with consultants, patient, and family members, and other required patient management activities. This 30 minutes is in excess of all separately billable procedures. Scribe Attestation The scribe's documentation has been prepared under my direction and personally reviewed by me in its entirety. I confirm that the note above accurately reflects all work, treatment, procedures, and medical decision making performed by me. Departure Information Dispostion Home / Self-Care Referrals No Doctor, Assigned (PCP) Forms HOME CARE DOCUMENTATION FORM, IMPORTANT VISIT INFORMATION, WORK / SCHOOL INSTRUCTIONS Patient Instructions ED Overdose Alcohol, ED Seizure Recurrent, My [facility] Additional Instructions Follow up today by phone with Dr. Hernandez to let her know you are having frequent seizures. Avoid alcohol abuse. Take significant seizure precaution Problem Qualifiers Primary Impression: Alcohol overdose Encounter type: initial encounter Injury intent: undetermined intent Qualified Codes: T51.94XA - Toxic effect of unspecified alcohol, undetermined, initial encounter
[2017-02-23] MEDS ORDERED: LORAZEPAM 2 MG/ML 1 ML VIAL ONE (00:23)
[2017-02-23] MEDS ORDERED: HALOPERIDOL LACTATE 5 MG/ML 1 ML VIAL ONE (00:23)
[2017-02-23 01:12] LABS: HEMATOCRIT 45.3 % (42-52); HEMOGLOBIN 16.4 g/dL (14.0-18.0); MEAN CELL VOLUME 84.8 fL (80-100); MEAN CORPUSCULAR HEMOGLOBIN 30.7 pg (25-34); MEAN CORPUSCULAR HGB CONC 36.2 g/dl (32-36); PLATELET COUNT 225 K/uL (130-400); RED CELL DISTRIBUTION WIDTH CV 11.8 % (11.5-14.5); RED CELL DISTRIBUTION WIDTH SD 36.1 fL (36.4-46.3); WHITE BLOOD COUNT 9.78 K/uL (4.8-10.8)
[2017-02-23 01:31] LABS: ALBUMIN 3.9 gm/dl (3.4-5.0); ALT/SGPT 35 U/L (12-78); AST/SGOT 16 U/L (15-37); BLOOD UREA NITROGEN 13 mg/dl (7-18); CALCIUM 8.4 mg/dl (8.5-10.1); CARBON DIOXIDE 23 mmol/L (21-32); CREATININE 1.04 mg/dl (0.60-1.40); GLUCOSE 102 mg/dl (70-99); POTASSIUM 3.5 mmol/L (3.5-5.1); SODIUM 138 mmol/L (136-145)
[2017-02-23 01:34] LABS: ALKALINE PHOSPHATASE 69 U/L (45-117); TOTAL PROTEIN 7.2 gm/dl (6.4-8.2)
[2017-02-23] MEDS ORDERED: LEVE250T PO (05:34)
[2017-02-23 06:50] VITALS: PULSE 94; O2SAT 97
[2017-02-23 06:51] VITALS: BP 120/87
== END 2017-02-23 06:54 | disposition home or self-care (01) ==
LOC: C.EDB 23:47
DX: G40.909 Epilepsy, unspecified, not intractable, without status epilepticus (principal); T51.91XA Toxic effect of unspecified alcohol, accidental (unintentional), initial encounter; I10 Essential (primary) hypertension; F17.200 Nicotine dependence, unspecified, uncomplicated; Z79.899 Other long term (current) drug therapy; Z83.79 Family history of other diseases of the digestive system; Z82.49 Family history of ischemic heart disease and other diseases of the circulatory system; Z82.0 Family history of epilepsy and other diseases of the nervous system